=== PATIENT | female | born 1990 | race African-American/Black ===

== ENCOUNTER 2016-11-07 04:13 | Inpatient (IN) | payer MEDICAID ==
[2016-11-07 04:49] LABS: APPEARANCE,URINE SLIGHTLY-CLOUDY; BILIRUBIN,URINE NEGATIVE (NEGATIVE); GLUCOSE, URINE NEGATIVE (NEGATIVE); KETONES,URINE NEGATIVE (NEGATIVE); LEUKOCYTE ESTERASE,URINE NEGATIVE (NEGATIVE); NITRITE,URINE NEGATIVE (NEGATIVE); PROTEIN,URINE NEGATIVE (NEGATIVE)
[2016-11-07 05:16] LABS: URINE BARBITURATES SCREEN NEGATIVE; URINE METHADONE SCREEN NEGATIVE; URINE OPIATES LOW NEGATIVE; URINE PHENCYCLIDINE SCREEN NEGATIVE
[2016-11-07 06:19] LABS: CHLAM PCR NOT DETECTED (NOT DETECT)
[2016-11-07] MEDS ORDERED: PENICILLIN G POTASSIUM 5,000,000 UNIT in DEXTROSE 5%-WATER 100 ML IV ONE (06:50)
[2016-11-07] MEDS ORDERED: PENICILLIN G-K 5 MILLION UNIT VIAL ONE ×3 (06:59→11:09)
[2016-11-07] MEDS: RINGERS SOLUTION,LACTATED 1,000 ML IV PRN ×2 (07:04→07:06)
[2016-11-07 07:23] LABS: ABSOLUTE BASOPHILS # (AUTO) 0.1 10^3/uL (0.0-0.2); ABSOLUTE EOSINOPHILS # (AUTO) 0.1 10^3/uL (0.0-0.6); ABSOLUTE LYMPHOCYTES (AUTO) 2.3 10^3/uL (0.5-4.7); ABSOLUTE MONOCYTES (AUTO) 0.8 10^3/uL (0.1-1.4); ABSOLUTE NEUT (AUTO) 7.5 10^3/uL (1.7-8.2); BASOPHILS % (AUTO) 0.6 % (0-2); EOSINOPHILS % (AUTO) 0.8 % (0-6); HEMATOCRIT 29.1 % (36.0-47.0); HEMOGLOBIN 9.5 g/dL (12.0-15.5); HGB HCT DIFFERENCE -0.6; LYMPHOCYTES % (AUTO) 21.5 % (13-45); MEAN CORPUSCULAR HEMOGLOBIN 26.2 pg (27.0-33.4); MEAN CORPUSCULAR HGB CONC 32.7 g/dL (32.0-36.0); MEAN CORPUSCULAR VOLUME 80 fl (80-97); MONOCYTES % (AUTO) 7.4 % (3-13); RED BLOOD COUNT 3.63 10^6/uL (3.72-5.28); RED CELL DISTRIBUTION WIDTH 15.3 % (11.5-14.0); SEGMENTED NEUTROPHILS % (AUTO) 69.7 % (42-78); WHITE BLOOD COUNT 10.8 10^3/uL (4.0-10.5)
--- NOTE | 2016-11-07 08:01 | L&D Flow Sheet ---
LD Flowsheet Datetime Report Generated by CPN: 11/07/2016 08:00 Datetime: 11/07/2016 07:59 Maternal Assessment Level of Consciousness: Fully Conscious (Clark Amaya, SN) DTR's/Clonus: DTRs 1+; No Clonus (Clark Amaya, SN) Headache: Denies (Clark Amaya, SN) Datetime: 11/07/2016 07:20 I/O Interventions: Up to BR (Columba Centeno, RN) Datetime: 11/07/2016 07:15 Communication Communication: RN at Bedside; Report Given to @ H Vicente, RN (Columba Centeno, RN) Communication Comments: Care relinquished at this time. (Columba Centeno, RN) Datetime: 11/07/2016 07:07 Medications Antibiotics: Start Antibiotics; Penicillin IV (Units) @ 5 million units (Columba Centeno, RN) Patient Care IV/Blood Work: New IV Bag Hung (Columba Centeno, RN) Datetime: 11/07/2016 07:05 Patient Care IV/Blood Work: Labs Drawn (Columba Centeno, RN) Patient Care Comments: lab at bedside to draw blood (Columba Centeno, RN) Datetime: 11/07/2016 07:01 Vital Signs Stage of : Antepartum (Columba Centeno, RN) Uterine Activity Monitor Mode: External; Palpation (Columba Centeno, RN) Frequency (min): 5-5.5 (Columba Centeno, RN) Quality: Mild (Columba Centeno, RN) Duration (sec): 60-120 (Columba Centeno, RN) Pattern: Normal: <= 5 Contractions in 10 Minutes (Columba Centeno, RN) Resting Tone (Palpate): Relaxed (Columba Centeno, RN) Assessment A Monitor Mode: External US (Columba Centeno, RN) FHR Baseline Rate : 140 (Columba Centeno, RN) Variability: Moderate 6-25 bpm (Columba Centeno, RN) Accelerations: None (Columba Centeno, RN) Decelerations: None (Columba Centeno, RN) Communication Communication: RN at Bedside; RN Reviewed Strip (Columba Centeno, RN) Datetime: 11/07/2016 06:47 Communication Communication: Provider Orders Received; Call/Page Returned by Provider (Columba Centeno RN) Communication Comments: report given to Dr Lind re: patient cervical exams, unknown GBS status, FHR status and contraction pattern. Orders received to admit, start PCN per GBS protocol, may have epidural PRN (Columba Centeno, RN) Datetime: 11/07/2016 06:35 Communication Communication: Call/Page Placed to Provider (Columba Centeno, RN) Datetime: 11/07/2016 06:33 Vaginal Exam Dilatation (cm): 3.0 (Columba Centeno, RN) Effacement (%): 40 (Columba Centeno, RN) Station: -2 (Columba Centeno, RN) Exam by: B Centeno, RN (Columba Centeno, RN) Vaginal Bleeding: None (Columba Centeno, RN) Cervix, Consistency: Soft (Columba Centeno, RN) Cervix, Position: Posterior (Columba Centeno, RN) Datetime: 11/07/2016 06:30 Vital Signs Stage of : Antepartum (Columba Centeno, RN) Respirations: 18 (Columba Centeno, RN) Uterine Activity Monitor Mode: External; Palpation (Columba Centeno, RN) Frequency (min): 4.5-7.5 (Columba Centeno, RN) Quality: Mild (Columba Centeno, RN) Duration (sec): 80-100 (Columba Centeno, RN) Resting Tone (Palpate): Relaxed (Columba Centeno, RN) Assessment A Monitor Mode: External US (Columba Centeno, RN) FHR Baseline Rate : 140 (Columba Centeno, RN) Variability: Moderate 6-25 bpm (Columba Centeno, RN) Accelerations: None (Columba Centeno, RN) Decelerations: None (Columba Centeno, RN) Comments: with period of minimal variability (Columba Centeno, RN) Pain Pain Scale: 3 (Columba Centeno, RN) Pain Presence: Intermittent (Columba Centeno, RN) Pain Type: Contraction (Columba Centeno, RN) Pain Location: Abdomen; Back (Columba Centeno, RN) Pain Goal: 1 (Columba Centeno, RN) Pain Relief Measures: Comfort Measures (Columba Centeno, RN) Pain Coping: Talking Through Contractions; Breathing Through Contractions (Columba Centeno, RN) Comfort Measures: Breathing/Relaxation; Family Support (Columba Centeno, RN) Communication Communication: RN at Bedside; RN Reviewed Strip (Columba Centeno, RN) LaborFlag: Antepartum (QS system process) Datetime: 11/07/2016 06:28 I/O Interventions: Up to BR (Columba Centeno, RN) Datetime: 11/07/2016 06:05 NBP Sys/Aileen/Mean (mmHg): 123 (QS system process) : 83 (QS system process) : 98 (QS system process) Pulse: 79 (QS system process) LaborFlag: Antepartum (QS system process) Datetime: 11/07/2016 06:00 Vital Signs Stage of : Antepartum (Columba Centeno, RN) Uterine Activity Monitor Mode: External; Palpation (Columba Centeno, RN) Frequency (min): 3-5 (Columba Centeno, RN) Quality: Mild/Moderate (Columba Centeno, RN) Duration (sec): 60-120 (Columba Centeno, RN) Pattern: Normal: <= 5 Contractions in 10 Minutes (Columba Centeno, RN) Resting Tone (Palpate): Relaxed (Columba Centeno, RN) Assessment A Monitor Mode: External US (Columba Centeno, RN) Monitor Interventions for FHR: Ultrasound Adjusted (Columba Centeno, RN) FHR Baseline Rate : 135 (Columba Centeno, RN) Variability: Minimal - Undetectable to <=5 bpm (Columba Centeno, RN) Accelerations: 10X10 (Columba Centeno, RN) Decelerations: Early; Late (Columba Centeno, RN) Communication Communication: RN at Bedside; RN Reviewed Strip (Columba Centeno, RN) Datetime: 11/07/2016 05:53 Patient Care IV/Blood Work: IV Started; IV Bolus Started; IV Bolus Given ml @ (Annotations: 1000ml lr) (Angella Avery, RN) Datetime: 11/07/2016 05:35 NBP Sys/Aileen/Mean (mmHg): 120 (QS system process) : 89 (QS system process) : 100 (QS system process) Pulse: 98 (QS system process) Monitor Interventions for FHR: Ultrasound Adjusted (Columba Centeno, RN) LaborFlag: Antepartum (QS system process) Datetime: 11/07/2016 05:32 Communication Communication: Provider Orders Received (Columba Centeno, RN) Communication Comments: Report given to Dr Lind re: patient EGA, contractions, FHR status, lab results. Orders received to start IV and walk for one hour, then recheck cervix. (Columba Centeno, RN) Datetime: 11/07/2016 05:30 Vital Signs Stage of : Antepartum (Columba Centeno, RN) Uterine Activity Monitor Mode: External (Columba Centeno, RN) Frequency (min): 4.5-5.5 (Columba Centeno, RN) Quality: Mild (Columba Centeno, RN) Duration (sec): 80-120 (Columba Centeno, RN) Pattern: Normal: <= 5 Contractions in 10 Minutes (Columba Centeno, RN) Resting Tone (Palpate): Relaxed (Columba Centeno, RN) Assessment A Monitor Mode: External US (Columba Centeno, RN) FHR Baseline Rate : 140 (Columba Centeno, RN) Variability: Moderate 6-25 bpm (Columba Centeno, RN) Accelerations: 10X10 (Columba Centeno, RN) Decelerations: None (Columba Centeno, RN) Communication Communication: RN at Bedside; RN Reviewed Strip (Columba Centeno, RN) Datetime: 11/07/2016 05:20 Comments: vibroacoustic stimulation attempted (Columba Centeno, RN) Datetime: 11/07/2016 05:04 NBP Sys/Aileen/Mean (mmHg): 115 (QS system process) : 87 (QS system process) : 97 (QS system process) Pulse: 97 (QS system process) LaborFlag: Antepartum (QS system process) Datetime: 11/07/2016 05:00 Vital Signs Stage of : Antepartum (Columba Centeno, RN) Uterine Activity Monitor Mode: External; Palpation (Columba Centeno, RN) Frequency (min): 2.5-4 (Columba Centeno, RN) Quality: Mild (Columba Centeno, RN) Duration (sec): 50-110 (Columba Centeno, RN) Pattern: Normal: <= 5 Contractions in 10 Minutes (Columba Centeno, RN) Resting Tone (Palpate): Relaxed (Columba Centeno, RN) Assessment A Monitor Mode: External US (Columba Centeno, RN) FHR Baseline Rate : 140 (Columba Centeno, RN) Variability: Moderate 6-25 bpm (Columba Centeno, RN) Accelerations: 10X10 (Columba Centeno, RN) Decelerations: None (Columba Centeno, RN) Comments: with periods of minimal variability (Columba Centeno, RN) Communication Communication: RN at Bedside; RN Reviewed Strip (Columba Centeno, RN) Datetime: 11/07/2016 04:49 I/O Interventions: Clear Liquids Given (Columba Centeno, RN) Patient Care Comments: karolyn mist given x2 (Columba Centeno, RN) Datetime: 11/07/2016 04:41 Frequency (min): per patient 3-5 minutes (Columba Centeno, RN) Pain Pain Scale: 3 (Columba Centeno, RN) Pain Presence: Intermittent (Columba Centeno, RN) Pain Type: Contraction (Columba Centeno, RN) Pain Location: Abdomen; Back (Columba Centeno, RN) Pain Goal: 1 (Columba Centeno, RN) Pain Relief Measures: Comfort Measures (Columba Centeno, RN) Pain Coping: Talking Through Contractions; Breathing Through Contractions (Columba Centeno, RN) Vaginal Bleeding: None (Columba Centeno, RN) Maternal Assessment Level of Consciousness: Fully Conscious (Columba Centeno, RN) DTR's/Clonus: DTRs 2+; No Clonus (Columba Centeno, RN) Headache: Denies (Columba Centeno, RN) Breath Sounds, Left: Clear and Equal (Columba Centeno, RN) Breath Sounds, Right: Clear and Equal (Columba Centeno, RN) Nausea/Vomiting: Present (Annotations: nausea) (Columba Centeno, RN) RUQ Epigastric Pain: Denies (Columba Centeno, RN) Datetime: 11/07/2016 04:37 Vaginal Exam Dilatation (cm): 1.5 (Columba Centeno, RN) Effacement (%): 40 (Columba Centeno, RN) Station: -2 (Columba Centeno, RN) Exam by: Moises Centeno RN (Columba Centeno, RN) Vaginal Bleeding: None (Columba Centeno, RN) Cervix, Consistency: Soft (Columba Centeno, RN) Cervix, Position: Posterior (Columba Centeno, RN) Datetime: 11/07/2016 04:34 NBP Sys/Aileen/Mean (mmHg): 122 (QS system process) : 87 (QS system process) : 99 (QS system process) Pulse: 104 (QS system process)
[2016-11-07 08:24] LABS: ADD HIVPANEL? NO; HIV (1 AND 2) ANTIBODY NEGATIVE (NEGATIVE)
[2016-11-07] MEDS ORDERED: EPHEDRINE SULFATE INJ 50 MG/1 ML AMPULE ONE (08:24)
[2016-11-07] MEDS ORDERED: PHENYLEPHRINE HCL INJ/PF 10 MG/1 ML SDV ONE (08:24)
[2016-11-07] MEDS ORDERED: FENTANYL CITRATE INJ/PF 100 MCG/2 ML AMPUL ONE (08:24)
[2016-11-07] MEDS ORDERED: BUPIVACAINE HCL 0.25 % INJ/PF (2.5 MG/1 ML) 30 ML VIAL ONE (08:25)
[2016-11-07] MEDS ORDERED: FENTANYL/BUPIVACAINE/NS/PF 200 MCG/100 ML RTUINJ EPI ONE (08:25)
[2016-11-07] MEDS ORDERED: BUPIVACAINE HCL 0.25 % INJ/PF (2.5 MG/1 ML) 30 ML VIAL INFIL ONE (09:03)
[2016-11-07] MEDS ORDERED: BENZOIN/ALOE VERA/STORAX/TOLU TINCTURE 60 ML TP PRN (09:03)
[2016-11-07] MEDS ORDERED: FENTANYL/BUPIVACAINE/NS/PF 100 ML EPI PRN (09:03)
--- NOTE | 2016-11-07 10:01 | L&D Flow Sheet ---
LD Flowsheet Datetime Report Generated by CPN: 11/07/2016 10:00 Datetime: 11/07/2016 09:56 NBP Sys/Aileen/Mean (mmHg): 121 (QS system process) NBP Sys/Aileen/Mean (mmHg): 130 (QS system process) : 73 (QS system process) : 82 (QS system process) : 90 (QS system process) : 99 (QS system process) Pulse: 74 (QS system process) LaborFlag: Antepartum (QS system process) Datetime: 11/07/2016 09:54 NBP Sys/Aileen/Mean (mmHg): 124 (QS system process) : 73 (QS system process) : 91 (QS system process) Pulse: 65 (QS system process) LaborFlag: Antepartum (QS system process) Datetime: 11/07/2016 09:53 NBP Sys/Aileen/Mean (mmHg): 130 (QS system process) NBP Sys/Aileen/Mean (mmHg): 127 (QS system process) : 78 (QS system process) : 71 (QS system process) : 96 (QS system process) : 93 (QS system process) Pulse: 68 (QS system process) Pulse: 71 (QS system process) LaborFlag: Antepartum (QS system process) Datetime: 11/07/2016 09:52 NBP Sys/Aileen/Mean (mmHg): 128 (QS system process) : 74 (QS system process) : 96 (QS system process) Pulse: 75 (QS system process) LaborFlag: Antepartum (QS system process) Datetime: 11/07/2016 09:50 NBP Sys/Aileen/Mean (mmHg): 126 (QS system process) : 69 (QS system process) : 92 (QS system process) Pulse: 80 (QS system process) LaborFlag: Antepartum (QS system process) Datetime: 11/07/2016 09:49 NBP Sys/Aileen/Mean (mmHg): 120 (QS system process) : 65 (QS system process) : 87 (QS system process) Pulse: 74 (QS system process) LaborFlag: Antepartum (QS system process) Datetime: 11/07/2016 09:48 NBP Sys/Aileen/Mean (mmHg): 124 (QS system process) : 84 (QS system process) : 97 (QS system process) Pulse: 69 (QS system process) LaborFlag: Antepartum (QS system process) Datetime: 11/07/2016 09:47 NBP Sys/Aileen/Mean (mmHg): 124 (QS system process) : 81 (QS system process) : 99 (QS system process) Pulse: 81 (QS system process) LaborFlag: Antepartum (QS system process) Datetime: 11/07/2016 09:46 NBP Sys/Aileen/Mean (mmHg): 131 (QS system process) : 85 (QS system process) : 103 (QS system process) Pulse: 86 (QS system process) LaborFlag: Antepartum (QS system process) Datetime: 11/07/2016 09:45 Pulse: 86 (QS system process) SpO2 (%): 100 (QS system process) LaborFlag: Antepartum (QS system process) Datetime: 11/07/2016 09:43 NBP Sys/Aileen/Mean (mmHg): 130 (QS system process) : 80 (QS system process) : 101 (QS system process) Pulse: 68 (QS system process) LaborFlag: Antepartum (QS system process) Datetime: 11/07/2016 09:42 NBP Sys/Aileen/Mean (mmHg): 135 (QS system process) : 82 (QS system process) : 101 (QS system process) Pulse: 75 (QS system process) LaborFlag: Antepartum (QS system process) Datetime: 11/07/2016 09:40 Pulse: 83 (QS system process) SpO2 (%): 100 (QS system process) LaborFlag: Antepartum (QS system process) Datetime: 11/07/2016 09:39 NBP Sys/Aileen/Mean (mmHg): 132 (QS system process) : 92 (QS system process) : 108 (QS system process) Pulse: 85 (QS system process) LaborFlag: Antepartum (QS system process) Datetime: 11/07/2016 09:38 Procedure Verify: Correct Patient Identity; Correct Side and Site are Marked; Accurate Procedure Consent Form; Agreement on Procedure to be Done; Correct Patient Position (Randa Zhagn, RN) Datetime: 11/07/2016 09:36 Anesthesia Comments: DrEva Readightshead at bedside (Randa Meridas, RN) Datetime: 11/07/2016 09:35 Pulse: 76 (QS system process) SpO2 (%): 100 (QS system process) LaborFlag: Antepartum (QS system process) Datetime: 11/07/2016 09:31 Anesthesia Comments: call placed to [facility] for epidural (Randa Vicente, RN) Datetime: 11/07/2016 09:30 Pulse: 72 (QS system process) SpO2 (%): 100 (QS system process) LaborFlag: Antepartum (QS system process) Datetime: 11/07/2016 09:24 NBP Sys/Aileen/Mean (mmHg): 116 (QS system process) : 68 (QS system process) : 87 (QS system process) Pulse: 72 (QS system process) LaborFlag: Antepartum (QS system process) Datetime: 11/07/2016 09:23 Pulse: 90 (QS system process) SpO2 (%): 100 (QS system process) LaborFlag: Antepartum (QS system process) Datetime: 11/07/2016 08:30 Monitor Mode: External; Palpation (Randa Vicente, RN) Frequency (min): 2-4 (Randa Vicente, RN) Quality: Mild/Moderate (Randa Vicente, RN) Duration (sec): 60-90 (Randa Vicente, RN) Resting Tone (Palpate): Relaxed (Randa Vicente, RN) Monitor Mode: External US (Randa Vicente, RN) FHR Baseline Rate : 140 (Randa Vicente, RN) Variability: Moderate 6-25 bpm (Randa Vicente, RN) Accelerations: 10X10 (Randa Vicente, RN) Decelerations: Early; Late (Randa Vicente, RN) Datetime: 11/07/2016 08:20 Bedside Blood Glucose: 80 (QS system process) LaborFlag: Antepartum (QS system process) Datetime: 11/07/2016 08:19 Bedside Blood Glucose: 80 (Randa Vicente, RN) LaborFlag: Antepartum (QS system process) Datetime: 11/07/2016 08:17 IV/Blood Work: IV Bolus Started (Randa Vicente, RN) Datetime: 11/07/2016 08:00 Monitor Mode: External (Randa Vicente, RN) Frequency (min): 2-4 (Randa Vicente, RN) Quality: Mild/Moderate (Randa Vicente, RN) Duration (sec): 60-90 (Randa Zhang RN) Resting Tone (Palpate): Relaxed (Randa Zhang RN) Monitor Mode: External US (Randa Zhang RN) FHR Baseline Rate : 140 (Randa Zhang RN) Variability: Moderate 6-25 bpm (Randa Zhang RN) Accelerations: None (Randa Zhang RN) Decelerations: None (Randa Zhang RN)
--- NOTE | 2016-11-07 10:20 | L&D Progress Notes ---
PROGRESS NOTES Datetime Report Generated by CPN: 11/07/2016 10:20 PROGRESS NOTE Procedures: Artificial ROM Plan: Continue Present Management Vital Signs : Reviewed Comment: Pt comfortable after epidural. Arom yielded copious amniotic fluid c/w polyhydramnios. [id number]/-1 MEMBRANES Membranes: Ruptured Amniotic Fluid Color: Meconium, Particulate FETUS A FHR Category: Category I Presentation: Vertex SIGNATURE SIGNATURE: [id number] Signature: with User ID: [email or web address]
[2016-11-07] MEDS ORDERED: LIDOCAINE 1% INJ-PF (10 MG/ML) 30 ML SDV ONE (10:22)
[2016-11-07] MEDS ORDERED: MISOPROSTOL 0.2 MG TABLET ONE (10:22)
[2016-11-07] MEDS ORDERED: OXYTOCIN/NORMAL SALINE 20 UNIT/1,000 ML RTUINJ ONE (10:23)
[2016-11-07] MEDS ORDERED: PENICILLIN G POTASSIUM 2,500,000 UNIT in DEXTROSE 5%-WATER 50 ML IV SCH (10:51)
[2016-11-07] MEDS: PENICILLIN G-K 5 MILLION UNIT VIAL IV SCH ×3 (11:10→19:41)
[2016-11-07] MEDS ORDERED: ZOLPIDEM TARTRATE 5 MG TABLET PO PRN (11:45)
[2016-11-07] MEDS ORDERED: DIPH/PERTUSS(ACELL)/TETANUS VAC/PF 0.5 ML SYR (>=10YO) IM PRN (11:45)
[2016-11-07] MEDS ORDERED: OXYTOCIN/NORMAL SALINE 1,000 ML IV PRN (11:45)
[2016-11-07] MEDS ORDERED: DIBUCAINE 1% OINTMENT 28 GM TP PRN (11:45)
[2016-11-07] MEDS ORDERED: MEASLES,MUMPS&RUBELLA VACC/PF 0.5 ML VIAL SUBCUT PRN (11:45)
[2016-11-07] MEDS ORDERED: ACETAMINOPHEN WITH CODEINE #3 TABLET PO PRN ×2 (11:45)
[2016-11-07] MEDS ORDERED: BENZOCAINE/MENTHOL AEROSOL SPRAY 56 ML TOP PRN (11:45)
--- NOTE | 2016-11-07 12:01 | L&D Flow Sheet ---
LD Flowsheet Datetime Report Generated by CPN: 11/07/2016 12:00 Datetime: 11/07/2016 11:42 NBP Sys/Aileen/Mean (mmHg): 130 (QS system process) : 99 (QS system process) : 111 (QS system process) Pulse: 71 (QS system process) LaborFlag: Antepartum (QS system process) Datetime: 11/07/2016 11:28 NBP Sys/Aileen/Mean (mmHg): 140 (QS system process) : 106 (QS system process) : 119 (QS system process) Pulse: 70 (QS system process) LaborFlag: Antepartum (QS system process) Datetime: 11/07/2016 11:22 Dilatation (cm): 10.0 (Randa Vicente, RN) Effacement (%): 100 (Randa Vicente, RN) Station: 0 (Randa Vicente, RN) Exam by: Dr. Aldrich (Randa Vicente, RN) Datetime: 11/07/2016 11:12 NBP Sys/Aileen/Mean (mmHg): 131 (QS system process) : 83 (QS system process) : 102 (QS system process) Pulse: 69 (QS system process) LaborFlag: Antepartum (QS system process) Datetime: 11/07/2016 10:58 NBP Sys/Aileen/Mean (mmHg): 125 (QS system process) : 76 (QS system process) : 95 (QS system process) Pulse: 65 (QS system process) LaborFlag: Antepartum (QS system process) Datetime: 11/07/2016 10:55 Patient Position/Activity: Left Lateral; Peanut Ball (Randa Vicente, RN) Datetime: 11/07/2016 10:53 Dilatation (cm): 8.0 (Randa Vicente, RN) Effacement (%): 100 (Randa Vicente, RN) Station: -1 (Randa Vicente, RN) Exam by: Dr. Aldrich (Randa Vicente, RN) Datetime: 11/07/2016 10:43 NBP Sys/Aileen/Mean (mmHg): 142 (QS system process) : 75 (QS system process) : 102 (QS system process) Pulse: 74 (QS system process) LaborFlag: Antepartum (QS system process) Datetime: 11/07/2016 10:30 Monitor Mode: External; Palpation (Randa Vicente, RN) Frequency (min): 2-3 (Randa Vicente, RN) Quality: Moderate (Randa Vicente, RN) Duration (sec): 60-80 (Randa Vicente, RN) Resting Tone (Palpate): Relaxed (Randa Vicente, RN) Monitor Mode: External US (Randa Vicente, RN) FHR Baseline Rate : 140 (Randa Vicente, RN) Variability: Moderate 6-25 bpm (Randa Vicente, RN) Accelerations: None (Randa Vicente, RN) Decelerations: Early (Randa Vicente, RN) Datetime: 11/07/2016 10:27 NBP Sys/Aileen/Mean (mmHg): 139 (QS system process) : 86 (QS system process) : 105 (QS system process) Pulse: 76 (QS system process) LaborFlag: Antepartum (QS system process) Datetime: 11/07/2016 10:16 Patient Position/Activity: Tailors (Randa Vicente, RN) Datetime: 11/07/2016 10:15 Monitor Mode: External; Palpation (Randa Vicente, RN) Frequency (min): 2-3 (Randa Vicente, RN) Quality: Moderate (Randa Vicente, RN) Duration (sec): 60-90 (Randa Vicente, RN) Resting Tone (Palpate): Relaxed (Randa Vicente, RN) Monitor Mode: External US (Randa Vicente, RN) FHR Baseline Rate : 140 (Randa Vicente, RN) Variability: Moderate 6-25 bpm (Randa Vicente, RN) Accelerations: None (Randa Vicente, RN) Decelerations: Early (Randa Vicente, RN) Datetime: 11/07/2016 10:12 Dilatation (cm): 8.0 (Randa Vicente, RN) Effacement (%): 100 (Randa Vicente, RN) Station: -1 (Randa Vicente, RN) Exam by: H. Vicente. RN (Randa Vicente, RN) Datetime: 11/07/2016 10:11 Membranes Rupture Method: Artificial (Randa Vicente, RN) Amniotic Fluid Color: Heavy Meconium (Randa Vicente, RN) Amniotic Fluid Amount: Large (Randa Vicente, RN) Datetime: 11/07/2016 10:10 Communication Comments: Dr. Aldrich at bedside (Randacarlos Meridas, RN) Datetime: 11/07/2016 10:00 Monitor Mode: External; Palpation (Randa Zhang, RN) Frequency (min): 2-3 (Randa Vicente, RN) Quality: Moderate (Randa Vicente, RN) Duration (sec): 60-80 (Randa Vciente, RN) Resting Tone (Palpate): Relaxed (Randa Vicente, RN) Monitor Mode: External US (Randa Meridas, RN) FHR Baseline Rate : 145 (Randa Vciente, RN) Variability: Moderate 6-25 bpm (Randa Vicente, RN) Accelerations: 10X10 (Randa Vicente, RN) Decelerations: None (Randa Vicente, RN)
--- NOTE | 2016-11-07 13:40 | Delivery Summary ---
Del Sum A-C Datetime Report Generated by CPN: 11/07/2016 13:39 ADMISSION DATA Chief Complaint: Uterine Contractions Admission Impression: Term, Intrauterine Admit Provider Comments: attempt to get records from [facility] epidural when desires DELIVERY PERSONNEL Delivery Doctor:: Dodie Aldrich MD Anesthesiologist:: Lucero Rogers MD Labor and Delivery Nurse:: Randa Zhang RN Nursery Nurse:: Malu Haque RN Student Observers:: SN Jordy and M. Sharon, SN MATERNAL INFORMATION Delivery Anesthesia: Epidural Medications After Delivery: Pitocin Bolus-Please Comment Meds After Delivery Comment: Pitocin 20 units in 1000mL NSS Estimated Blood Loss (ml): 400 Maternal Complications: None Other Maternal Complications: polyhydramnios Provider Comments: Pt progressed to over intact perineum of male wiht apgars 9 and 9. Head delivered OA. Nuchal cord reduced. Shoulders and body delivered easliy. COrd clamped and cut. Placenta spont and intact. .Mom and baby doing well. LABOR SUMMARY EDC: 11/03/2016 00:00 No. Babies in Womb: 1 Attempted: No Labor Anesthesia: Epidural LABOR INFORMATION Reason for Induction: Not Applicable Onset of Labor: 11/07/2016 06:33 Oxytocin: N/A Group B Beta Strep: unknown Antibiotics # of Doses: 2 Antibiotics Time of Last Dose: 1110 Name of Antibiotic Given: PCN Steroids Given: None Reason Steroids Not Administered: Not Applicable MEMBRANES Membranes Rupture Method: Artificial Rupture of Membranes: 11/07/2016 10:11 Length of Rupture (hr): 1.30 Amniotic Fluid Color: Heavy Meconium Amniotic Fluid Amount: Large STAGES OF LABOR Stage 3 hr: 0 Stage 3 min: 4 Total Time in Labor hr: 5 Total Time in Labor min: 0 VAGINAL DELIVERY Episiotomy: None Laceration Type: None Laceration Repair: Not Applicable Sponge Count Correct: N/A CSECTION DELIVERY Primary Indication: N/A Secondary Indication: N/A CSection Urgency: N/A CSection Incidence: N/A Labor: N/A Elective: N/A CSection Incision: N/A BABY A INFORMATION Infant Delivery Date/Time: 11/07/2016 11:29 Method of Delivery: Vaginal Born in Route : No : N/A Forceps: N/A Vacuum Extraction: N/A Shoulder Dystocia : No PRESENTATION/POSITION BABY A Presentation: Cephalic Cephalic Presentation: Vertex Breech Presentation: N/A PLACENTA INFORMATION BABY A Placenta Delivery Time : 11/07/2016 11:33 Placenta Method of Delivery: Spontaneous Placenta Status: Delivered SCORES BABY A Heart Rate 1 min: >100 bpm Resp Effort 1 min: Good Cry Reflex Irritability 1 min: Cough or Sneeze or Pulls Away Muscle Tone 1 min: Active Motion Color 1 min: Body [place], Extremities Blue Resuscitation Effort 1 min: Tactile Stimulation SCORE 1 MIN: 9 Heart Rate 5 min: >100 bpm Resp Effort 5 min: Good Cry Reflex Irritability 5 min: Cough or Sneeze or Pulls Away Muscle Tone 5 min: Active Motion Color 5 min: Body [place], Extremities Blue Resuscitation Effort 5 min: Tactile Stimulation SCORE 5 MIN: 9 INFANT INFORMATION BABY A Gestational Age at Delivery: 40.4 Gestational Status: Full Term- 39- 40.6 Weeks Outcome : Liveborn Infant Condition : Stable Sex: Male IDENTIFICATION BABY A Verification Date/Time: 11/07/2016 11:36 ID Band Number: [id number] Mother's Name Verified: Yes RN Verifying Infant: A Justo RN/ B Baidy RN WEIGHT/LENGTH BABY A Infant Birthweight (gm): 3675 Infant Weight (lb): 8 Infant Weight (oz): 2 Infant Length (in): 20.50 Infant Length (cm): 52.07 CORD INFORMATION BABY A No. Cord Vessels: 3 Nuchal Cord : Around Neck x1, Loose Cord Blood Taken: Yes-For Storage (Mom's Blood type +) Suction: Mouth; Nose ASSESSMENT BABY A Infant Complications: Meconium Physical Findings at Delivery: Within Normal Limits Infant Respirations: Appears Normal Skin to Skin: Yes Timber Grader/ALS Called : No Care By: Malu Haque RN and SN Tomas Transferred To: Remains with Mother BABY B INFORMATION : N/A SIGNATURES Signature: with User ID: [email or web address]
--- NOTE | 2016-11-07 14:01 | Admission Physical ---
Datetime Report Generated by CPN: 11/07/2016 14:00 CURRENT ADMISSION Chief Complaint: Uterine Contractions Admit Plan: Initiate Labor Protocol ALLERGIES Medication Allergies: No Medication Allergies: No Known Allergies (11/07/2016) Latex: No Latex Allergies Food Allergies: none Environmental Allergies: none OBSTETRICAL HISTORY EDC: 11/03/2016 00:00 : 3 Para: 2 Term: 2 : 0 SAB: 0 IAB: 0 Ectopic: 0 Livin Cesareans: 0 VBACs: 0 Multiple Births: 0 Gestational Diabetes: No Rh Sensitization: No Incompetent Cervix: No NIGEL: No Infertility: No ART Treatment: No Uterine Anomaly: No IUGR: No Hx Previous C/S: No Macrosomia: No Hx Loss/Stillborn: No PIH: No Hx : No Placenta Previa/Abruption: No Depression/PP Depression: No PTL/PROM: No Post Hemorrhage: No Current Procedures: Ultrasound; NST Obstetrical History Comments: G1: 2009 G2: 2012 G3: Current SEE RECORDS Alcohol: No Marijuana : No Cocaine: No Other Illicit Drugs: No Cigarettes: Current Everyday Smoker. [id number] Cigarette Frequency: 5 - 10 per day Advised to Stop: Yes Cigarette Comments: half ppd MEDICAL HISTORY Diabetes: No Blood Transfusion: No Pulmonary Disease (Asthma, TB): No Breast Disease: No Hypertension: No Data Integrity Analyst Surgery: No Heart Disease: No Hosp/Surgery: Yes Autoimmune Disorder: No Anesthetic Complications: No Kidney Disease: No Abnormal Pap Smear: No Neuro/Epilepsy: No Psychiatric Disorders: No Other Medical Diseases: No Hepatitis/Liver Disease: No Significant Family History: No Varicosities/Phlebitis: No Trauma/Violence : No Thyroid Dysfunction: No Medical History Comments: childbirth INFECTIOUS HISTORY Gonorrhea: No Genital Herpes: No Chlamydia: No Tuberculosis: No Syphilis: No Hepatitis: No HIV/AIDS Exposure: No Rash or Viral Illness: No HPV: No PHYSICAL EXAM General: Normal HEENT: Normal Neurologic: Normal Thyroid: Normal Heart: Normal Lungs: Normal Breast: Normal Back: Normal Abdomen: Normal Genitourinary Exam: Normal Extremities: Normal DTRs: Normal Pelvic Type: Adequate Physical Exam Comments: efw 9 pounds by leopolds pt smokes Vital Signs: Reviewed MEMBRANES Membranes: Ruptured Amniotic Fluid Color: Meconium, Particulate FETUS A EGA: 40.4 Monitoring: External US FHR Category: Category I Presentation: Vertex Admit Comment: attempt to get records from [facility] epidural when desires PLANS FOR LABOR AND DELIVERY Labor and Delivery: None Pain Management: Epidural Feeding Preference: Breast Benefit of Breast Feed Discussed: Yes Circumcision: No INFORMED CONSENT Signature: with User ID: [email or web address]
[2016-11-07] MEDS: IBUPROFEN 800 MG TABLET PO SCH ×2 (14:20→21:11)
[2016-11-07] MEDS: FERROUS SULFATE 325 MG TABLET PO SCH (17:44)
[2016-11-07] MEDS: DOCUSATE SODIUM 100 MG CAPSULE PO SCH (17:44)
--- NOTE | 2016-11-07 19:01 | L&D Flow Sheet ---
LD Flowsheet Datetime Report Generated by CPN: 11/07/2016 19:00 Datetime: 11/07/2016 13:27 NBP Sys/Aileen/Mean (mmHg): 135 (QS system process) : 77 (QS system process) : 98 (QS system process) Pulse: 82 (QS system process) Datetime: 11/07/2016 13:00 Stage of : Recovery (Randa Vicente, RN) Pain Scale: 0 (Randa Vicente, RN) Pain Presence: None/Denies (Randa Vicente, RN) Pain Type: N/A (Randa Vicente, RN) Datetime: 11/07/2016 12:57 NBP Sys/Aileen/Mean (mmHg): 127 (QS system process) : 87 (QS system process) : 102 (QS system process) Pulse: 83 (QS system process) Datetime: 11/07/2016 12:45 Stage of : Recovery (Rnada Vicente, RN) Pain Scale: 0 (Randa Vicente, RN) Pain Presence: None/Denies (Randa Vicente, RN) Pain Type: N/A (Randa Vicente, RN) Datetime: 11/07/2016 12:42 NBP Sys/Aileen/Mean (mmHg): 135 (QS system process) : 89 (QS system process) : 107 (QS system process) Pulse: 81 (QS system process) Datetime: 11/07/2016 12:30 Stage of : Recovery (Randa Vicente, RN) Pain Scale: 0 (Randa Vicente, RN) Pain Presence: None/Denies (Randa Vicente, RN) Pain Type: N/A (Randa Vicente, RN) Datetime: 11/07/2016 12:27 NBP Sys/Aileen/Mean (mmHg): 136 (QS system process) : 74 (QS system process) : 99 (QS system process) Pulse: 74 (QS system process) Datetime: 11/07/2016 12:15 Stage of : Recovery (Randa Vicente, RN) Pain Scale: 0 (Randa Vicente, RN) Pain Presence: None/Denies (Randa Vicente, RN) Pain Type: N/A (Randa Vicente, RN) Datetime: 11/07/2016 12:12 NBP Sys/Aileen/Mean (mmHg): 136 (QS system process) : 74 (QS system process) : 98 (QS system process) Pulse: 73 (QS system process) Datetime: 11/07/2016 12:00 Stage of : Recovery (Randa Vicente, RN) Pain Scale: 0 (Randa Vicente, RN) Pain Presence: None/Denies (Randa Vicente, RN) Pain Type: N/A (Randa Vicente, RN) Datetime: 11/07/2016 11:50 Stage of : Recovery (Randa Vicente, RN) Pain Scale: 0 (Randa Vicente, RN) Pain Presence: None/Denies (Randa Vicente, RN) Pain Type: N/A (Randa Vicente, RN) Datetime: 11/07/2016 11:42 NBP Sys/Aileen/Mean (mmHg): 130 (QS system process) : 99 (QS system process) : 111 (QS system process) Pulse: 71 (QS system process) Datetime: 11/07/2016 11:35 Stage of : Recovery (Randa Zhang RN) Pain Scale: 0 (Randa Zhang RN) Pain Presence: None/Denies (Randa Zhang RN) Pain Type: N/A (Randa Zhang RN) Datetime: 11/07/2016 11:28 NBP Sys/Aileen/Mean (mmHg): 140 (QS system process) : 106 (QS system process) : 119 (QS system process) Pulse: 70 (QS system process) LaborFlag: Antepartum (QS system process) Datetime: 11/07/2016 11:22 Dilatation (cm): 10.0 (Randa Zhang RN) Effacement (%): 100 (Randa Zhang RN) Station: 0 (Randa Zhang RN) Exam by: Dr. Aldrich (Randa Zhang RN) Communication Comments: RN at bedside to remain until delivery (Randa Vicente, RN) Datetime: 11/07/2016 11:21 Communication Comments: Dr. Aldrich at bedside (Randa Vicente, RN) Datetime: 11/07/2016 11:15 Monitor Mode: External; Palpation (Randa Vicente, RN) Frequency (min): 2-4 (Randa Vicente, RN) Quality: Moderate (Randa Vicente, RN) Duration (sec): 60-80 (Randa Vicente, RN) Resting Tone (Palpate): Relaxed (Randa Vicente, RN) Monitor Mode: External US (Randa Vicente, RN) FHR Baseline Rate : 140 (Randa Vicente, RN) Variability: Moderate 6-25 bpm (Randa Vicente, RN) Accelerations: None (Randa Vicente, RN) Decelerations: Variable (Randa Vicente, RN) Datetime: 11/07/2016 11:12 NBP Sys/Aileen/Mean (mmHg): 131 (QS system process) : 83 (QS system process) : 102 (QS system process) Pulse: 69 (QS system process) LaborFlag: Antepartum (QS system process) Datetime: 11/07/2016 11:00 Monitor Mode: External; Palpation (Randa Vicente, RN) Frequency (min): 2-3 (Randa Vicente, RN) Quality: Moderate (Randa Vicente, RN) Duration (sec): 60-80 (Randa Vicente, RN) Resting Tone (Palpate): Relaxed (Randa Vicente, RN) Monitor Mode: External US (Randa Vicente, RN) FHR Baseline Rate : 140 (Randa Vicente, RN) Variability: Moderate 6-25 bpm (Randa Vicente, RN) Accelerations: None (Randa Vicente, RN) Decelerations: Variable (Randa Vicente, RN) Datetime: 11/07/2016 10:58 NBP Sys/Aileen/Mean (mmHg): 125 (QS system process) : 76 (QS system process) : 95 (QS system process) Pulse: 65 (QS system process) LaborFlag: Antepartum (QS system process) Datetime: 11/07/2016 10:55 Patient Position/Activity: Left Lateral; Peanut Ball (Randa Vicente, RN) Datetime: 11/07/2016 10:53 Dilatation (cm): 8.0 (Randa Vicente, RN) Effacement (%): 100 (Randa Vicente, RN) Station: -1 (Randa Vicente, RN) Exam by: Dr. Aldrich (Randa Vicente, RN) Datetime: 11/07/2016 10:45 Monitor Mode: External; Palpation (Randa Vicente, RN) Frequency (min): 2-3 (Randa Vicente, RN) Quality: Moderate (Randa Vicente, RN) Duration (sec): 60-80 (Randa Vicente, RN) Resting Tone (Palpate): Relaxed (Randa Vicente, RN) Monitor Mode: External US (Randa Vicente, RN) FHR Baseline Rate : 140 (Randa Vicente, RN) Variability: Moderate 6-25 bpm (Randa Vicente, RN) Accelerations: None (Randa Vicente, RN) Decelerations: Variable (Randa Vicente, RN) Datetime: 11/07/2016 10:43 NBP Sys/Aileen/Mean (mmHg): 142 (QS system process) : 75 (QS system process) : 102 (QS system process) Pulse: 74 (QS system process) LaborFlag: Antepartum (QS system process) Datetime: 11/07/2016 10:30 Monitor Mode: External; Palpation (Randa Vicente, RN) Frequency (min): 2-3 (Randa Vicente, RN) Quality: Moderate (Randa Vicente, RN) Duration (sec): 60-80 (Randa Vicente, RN) Resting Tone (Palpate): Relaxed (Randa Vicente, RN) Monitor Mode: External US (Randa Vicente, RN) FHR Baseline Rate : 140 (Randa Vicente, RN) Variability: Moderate 6-25 bpm (Randa Vicente, RN) Accelerations: None (Randa Vicente, RN) Decelerations: Early (Randa Vicente, RN) Datetime: 11/07/2016 10:27 NBP Sys/Aileen/Mean (mmHg): 139 (QS system process) : 86 (QS system process) : 105 (QS system process) Pulse: 76 (QS system process) LaborFlag: Antepartum (QS system process) Datetime: 11/07/2016 10:16 Patient Position/Activity: Tailors (Randa Vicente, RN) Datetime: 11/07/2016 10:15 Monitor Mode: External; Palpation (Randa Vicente, RN) Frequency (min): 2-3 (Randa Vicente, RN) Quality: Moderate (Randa Vicente, RN) Duration (sec): 60-90 (Randa Vicente, RN) Resting Tone (Palpate): Relaxed (Randa Vicente, RN) Monitor Mode: External US (Randa Vicente, RN) FHR Baseline Rate : 140 (Randa Vicente, RN) Variability: Moderate 6-25 bpm (Randa Vicente, RN) Accelerations: None (Randa Vicente, RN) Decelerations: Early (Randa Vicente, RN) Datetime: 11/07/2016 10:12 Dilatation (cm): 8.0 (Randa Vicente, RN) Effacement (%): 100 (Randa Vicente, RN) Station: -1 (Randa Vicente, RN) Exam by: Melissa Willoughby RN (Randa Vicente, RN) Datetime: 11/07/2016 10:11 Membranes Rupture Method: Artificial (Randa Vicente, RN) Amniotic Fluid Color: Heavy Meconium (Randa Vicente, RN) Amniotic Fluid Amount: Large (Randa Vicente, RN) Datetime: 11/07/2016 10:10 Communication Comments: Dr. Aldrich at bedside (Randa Vicente, RN) Datetime: 11/07/2016 10:00 Monitor Mode: External; Palpation (Randa Vicente, RN) Frequency (min): 2-3 (Randa Vicente, RN) Quality: Moderate (Randa Vicente, RN) Duration (sec): 60-80 (Randa Vicente, RN) Resting Tone (Palpate): Relaxed (Randa Vicente, RN) Monitor Mode: External US (Randa Vicente, RN) FHR Baseline Rate : 145 (Randa Vicente, RN) Variability: Moderate 6-25 bpm (Randa Vicente, RN) Accelerations: 10X10 (Randa Vicente, RN) Decelerations: None (Randa Vicente, RN) Datetime: 11/07/2016 09:56 NBP Sys/Aileen/Mean (mmHg): 121 (QS system process) NBP Sys/Aileen/Mean (mmHg): 130 (QS system process) : 73 (QS system process) : 82 (QS system process) : 90 (QS system process) : 99 (QS system process) Pulse: 74 (QS system process) LaborFlag: Antepartum (QS system process) Datetime: 11/07/2016 09:54 NBP Sys/Aileen/Mean (mmHg): 124 (QS system process) : 73 (QS system process) : 91 (QS system process) Pulse: 65 (QS system process) LaborFlag: Antepartum (QS system process) Datetime: 11/07/2016 09:53 NBP Sys/Aileen/Mean (mmHg): 130 (QS system process) NBP Sys/Aileen/Mean (mmHg): 127 (QS system process) : 78 (QS system process) : 71 (QS system process) : 96 (QS system process) : 93 (QS system process) Pulse: 68 (QS system process) Pulse: 71 (QS system process) LaborFlag: Antepartum (QS system process) Datetime: 11/07/2016 09:52 NBP Sys/Aileen/Mean (mmHg): 128 (QS system process) : 74 (QS system process) : 96 (QS system process) Pulse: 75 (QS system process) LaborFlag: Antepartum (QS system process) Datetime: 11/07/2016 09:50 NBP Sys/Aileen/Mean (mmHg): 126 (QS system process) : 69 (QS system process) : 92 (QS system process) Pulse: 80 (QS system process) LaborFlag: Antepartum (QS system process) Datetime: 11/07/2016 09:49 NBP Sys/Aileen/Mean (mmHg): 120 (QS system process) : 65 (QS system process) : 87 (QS system process) Pulse: 74 (QS system process) LaborFlag: Antepartum (QS system process) Datetime: 11/07/2016 09:48 NBP Sys/Aileen/Mean (mmHg): 124 (QS system process) : 84 (QS system process) : 97 (QS system process) Pulse: 69 (QS system process) LaborFlag: Antepartum (QS system process) Datetime: 11/07/2016 09:47 NBP Sys/Aileen/Mean (mmHg): 124 (QS system process) : 81 (QS system process) : 99 (QS system process) Pulse: 81 (QS system process) LaborFlag: Antepartum (QS system process) Datetime: 11/07/2016 09:46 NBP Sys/Aileen/Mean (mmHg): 131 (QS system process) : 85 (QS system process) : 103 (QS system process) Pulse: 86 (QS system process) LaborFlag: Antepartum (QS system process) Datetime: 11/07/2016 09:45 Pulse: 86 (QS system process) SpO2 (%): 100 (QS system process) Monitor Mode: External; Palpation (Randacarlos Zhang, RN) Frequency (min): 1-2 (Randa Vicente, RN) Quality: Moderate (Randa Vicente, RN) Duration (sec): 60-80 (Randa Vicente, RN) Resting Tone (Palpate): Relaxed (Randacarlos Zhang, RN) Monitor Mode: External US (Randa Zhang, RN) FHR Baseline Rate : 145 (Randa Vicente, RN) Variability: Moderate 6-25 bpm (Randa Vicente, RN) Accelerations: None (Randa Vicente, RN) Decelerations: None (Randa Vicente, RN) Comments: RN at bedside continuously monitoring and auscultating fhts (Randa Zhang, RN) Epidural Procedure: Cath Placed; Test Dose (Randa Vicente, RN) LaborFlag: Antepartum (QS system process) Datetime: 11/07/2016 09:43 NBP Sys/Aileen/Mean (mmHg): 130 (QS system process) : 80 (QS system process) : 101 (QS system process) Pulse: 68 (QS system process) LaborFlag: Antepartum (QS system process) Datetime: 11/07/2016 09:42 NBP Sys/Aileen/Mean (mmHg): 135 (QS system process) : 82 (QS system process) : 101 (QS system process) Pulse: 75 (QS system process) LaborFlag: Antepartum (QS system process) Datetime: 11/07/2016 09:40 Pulse: 83 (QS system process) SpO2 (%): 100 (QS system process) LaborFlag: Antepartum (QS system process) Datetime: 11/07/2016 09:39 NBP Sys/Aileen/Mean (mmHg): 132 (QS system process) : 92 (QS system process) : 108 (QS system process) Pulse: 85 (QS system process) LaborFlag: Antepartum (QS system process) Datetime: 11/07/2016 09:38 Procedure Verify: Correct Patient Identity; Correct Side and Site are Marked; Accurate Procedure Consent Form; Agreement on Procedure to be Done; Correct Patient Position (Randa Vicente, RN) Datetime: 11/07/2016 09:36 Anesthesia Comments: DrEva Readightshead at bedside (Randa Vicente, RN) Datetime: 11/07/2016 09:35 Pulse: 76 (QS system process) SpO2 (%): 100 (QS system process) LaborFlag: Antepartum (QS system process) Datetime: 11/07/2016 09:31 Anesthesia Comments: call placed to Dr. Rogers for epidural (Randa Vicente, RN) Datetime: 11/07/2016 09:30 Pulse: 72 (QS system process) SpO2 (%): 100 (QS system process) Monitor Mode: External; Palpation (Randa Vicente, RN) Frequency (min): 1-3 (Randa Vicente, RN) Quality: Moderate (Randa Vicente, RN) Duration (sec): 60-80 (Randa Vicente, RN) Resting Tone (Palpate): Relaxed (Randa Vicente, RN) Contraction Comments: couplets noted (Randa Vicente, RN) Monitor Mode: External US (Randa Vicente, RN) FHR Baseline Rate : 140 (Randa Vicente, RN) Variability: Moderate 6-25 bpm (Randa Vicente, RN) Accelerations: None (Randa Vicente, RN) Decelerations: None (Randa Vicente, RN) LaborFlag: Antepartum (QS system process) Datetime: 11/07/2016 09:25 Epidural Positioning: Sitting (Randa Vicente, RN) Datetime: 11/07/2016 09:24 NBP Sys/Aileen/Mean (mmHg): 116 (QS system process) : 68 (QS system process) : 87 (QS system process) Pulse: 72 (QS system process) LaborFlag: Antepartum (QS system process) Datetime: 11/07/2016 09:23 Pulse: 90 (QS system process) SpO2 (%): 100 (QS system process) LaborFlag: Antepartum (QS system process) Datetime: 11/07/2016 09:15 Monitor Mode: External; Palpation (Randa Vicente, RN) Frequency (min): 2-3 (Randa Vicente, RN) Quality: Moderate (Randa Vicente, RN) Duration (sec): 60-80 (Randa Vicente, RN) Resting Tone (Palpate): Relaxed (Randa Vicente, RN) Contraction Comments: RN at bedside attempting to locate fdhts (Randa Vicente, RN) Monitor Mode: External US (Randa Vicente, RN) FHR Baseline Rate : 135 (Randa Vicente, RN) Variability: Moderate 6-25 bpm (Randa Vicente, RN) Accelerations: None (Randa Vicente, RN) Decelerations: None (Randa Vicente, RN) Datetime: 11/07/2016 09:00 Monitor Mode: External (Clark Amaya, SN) Frequency (min): 1-3 (Clark Amaya, SN) Quality: Mild/Moderate (Clark Amaya, SN) Duration (sec): 60-90 (Clark Amaya, SN) Pattern: Normal: <= 5 Contractions in 10 Minutes (Clark Amaya, SN) Resting Tone (Palpate): Relaxed (Clark Amaya, SN) Monitor Mode: External US (Clark Amaya, SN) FHR Baseline Rate : 140 (Clark Amaya, SN) Accelerations: 10X10 (Clark Amaya, SN) Decelerations: None (Clark Amaya, SN) Datetime: 11/07/2016 08:49 Comments: Pt up to restroom (Clark Amaya, SN) Datetime: 11/07/2016 08:30 Monitor Mode: External; Palpation (Randa Vicente, RN) Frequency (min): 2-4 (Randa Vicente, RN) Quality: Mild/Moderate (Randa Vicente, RN) Duration (sec): 60-90 (Randa Vicente, RN) Resting Tone (Palpate): Relaxed (Randa Vicente, RN) Monitor Mode: External US (Randa Vicente, RN) FHR Baseline Rate : 140 (Randa Vicente, RN) Variability: Moderate 6-25 bpm (Randa Vicente, RN) Accelerations: 10X10 (Randa Vicente, RN) Decelerations: Early; Late (Randa Vicente, RN) Datetime: 11/07/2016 08:20 Bedside Blood Glucose: 80 (QS system process) LaborFlag: Antepartum (QS system process) Datetime: 11/07/2016 08:19 Bedside Blood Glucose: 80 (Randa Vicente, RN) LaborFlag: Antepartum (QS system process) Datetime: 11/07/2016 08:17 IV/Blood Work: IV Bolus Started (Randa Vicente, RN) Datetime: 11/07/2016 08:00 Monitor Mode: External (Randa Vicente, RN) Frequency (min): 2-4 (Randa Vicente, RN) Quality: Mild/Moderate (Randa Vicente, RN) Duration (sec): 60-90 (Randa Vicente, RN) Resting Tone (Palpate): Relaxed (Randa Vicente, RN) Monitor Mode: External US (Randa Vicente, RN) FHR Baseline Rate : 140 (Randa Vicente, RN) Variability: Moderate 6-25 bpm (Randa Vicente, RN) Accelerations: None (Randa Vicente, RN) Decelerations: None (Randa Vicente, RN) Datetime: 11/07/2016 07:59 Level of Consciousness: Fully Conscious (Clark Amaya, SN) DTR's/Clonus: DTRs 1+; No Clonus (Clark Amaya, SN) Headache: Denies (Clark Amaya, SN) Breath Sounds, Left: Clear and Equal (Clark Amaya, SN) Breath Sounds, Right: Clear and Equal (Clark Amaya, SN) Nausea/Vomiting: Denies (Clark Amaya, SN) RUQ Epigastric Pain: Denies (Clark Amaya, SN) Datetime: 11/07/2016 07:30 Monitor Mode: External; Palpation (Randa Zhang RN) Frequency (min): 2-4 (Randa Zhang RN) Quality: Mild/Moderate (Randacarlos Zhang, RN) Duration (sec): 60-90 (Randa Zhang, RN) Resting Tone (Palpate): Relaxed (Randa Zhang RN) Monitor Mode: External US (Randa Zhang RN) FHR Baseline Rate : 140 (Randacarlos Zhang, RN) Variability: Moderate 6-25 bpm (Randa Vicente, RN) Accelerations: None (Randa Vicente, RN) Decelerations: Early (Randa Zhang, RN) Communication Comments: tracing maternal hts. RN at bedside attempting to locate fhts (Randa Zhang RN) Datetime: 11/07/2016 07:20 I/O Interventions: Up to BR (Columba Centeno, RN) Datetime: 11/07/2016 07:15 Communication: RN at Bedside; Report Given to @ H Vicente, RN (Columba Centeno, RN) Communication Comments: Care relinquished at this time. (Columba Centeno, RN) Datetime: 11/07/2016 07:07 Antibiotics: Start Antibiotics; Penicillin IV (Units) @ 5 million units (Columba Centeno, RN) IV/Blood Work: New IV Bag Hung (Columba Centeno, RN) Datetime: 11/07/2016 07:05 IV/Blood Work: Labs Drawn (Columba Centeno RN) Patient Care Comments: lab at bedside to draw blood (Columba Centeno RN) Datetime: 11/07/2016 07:01 Stage of : Antepartum (Columba Centeno RN) Monitor Mode: External; Palpation (Columba Centeno RN) Frequency (min): 5-5.5 (Columba Centeno RN) Quality: Mild (Columba Centeno RN) Duration (sec): 60-120 (Columba Centeno RN) Pattern: Normal: <= 5 Contractions in 10 Minutes (Columba Centeno RN) Resting Tone (Palpate): Relaxed (Columba Centeno RN) Monitor Mode: External US (Columba Centeno RN) FHR Baseline Rate : 140 (Columba Centeno RN) Variability: Moderate 6-25 bpm (Columba Centeno RN) Accelerations: None (Columba Centeno RN) Decelerations: None (Columba Centeno RN) Communication: RN at Bedside; RN Reviewed Strip (Columba Centeno RN)
[2016-11-08] MEDS: IBUPROFEN 800 MG TABLET PO SCH ×3 (05:40→21:03)
--- NOTE | 2016-11-08 06:01 | L&D General Admission ---
General Admit Datetime Report Generated by CPN: 11/08/2016 06:00 INFORMATION Patient Age: 26 (11/07/2016 04:14:QS system process) EDC: 11/03/2016 00:00 (11/07/2016 04:17:Angella Avery RN) : 3 (11/07/2016 04:17:Columba Centeno RN) Para: 2 (11/07/2016 04:17:Columba Centeno RN) Term: 2 (11/07/2016 04:17:Columba Centeno RN) : 0 (11/07/2016 04:17:Columba Centeno RN) Spontaneous Abortions: 0 (11/07/2016 04:17:Columba Centeno RN) Induced Abortions: 0 (11/07/2016 04:17:Columba Centeno RN) Livin (11/07/2016 04:17:Columba Centeno RN) Cesareans: 0 (11/07/2016 04:17:Columba Centeno RN) VBACs: 0 (11/07/2016 04:17:Columba Centeno RN) Ectopic: 0 (11/07/2016 04:17:Columba Centeno RN) Multiple Births: 0 (11/07/2016 04:17:Columba Centeno RN) Baby, Number in Womb: 1 (11/07/2016 04:17:Columba Centeno RN) CARE Primary Clinical Research Analyst: [facility] (11/07/2016 04:17:Columba Centeno RN) Clinical Research Analyst Other: [facility], [facility] (11/07/2016 04:17:Columba Centeno RN) Height (in): 68 (11/07/2016 14:00:QS system process) ALLERGIES Medication Allergy: No (11/07/2016 04:17:Columba Centeno RN) Medication Allergies: No Known Allergies (11/07/2016) (11/07/2016 04:30:QS system process) Latex Allergy: No Latex Allergies (11/07/2016 04:17:Columba Centeno RN) Food Allergies: none (11/07/2016 04:17:Columba Centeno, RN) Environmental Allergies: none (11/07/2016 04:17:Columba Centeno, RN) COMMUNICATION Primary Language: Japanese (11/07/2016 04:17:Columba Centeno RN) Medical Tx Preferred Language: Japanese (11/07/2016 04:17:Columba Centeno, RN) DEMOGRAPHICS Address: [address] [place] [id number] (11/07/2016 04:14:QS system process) Zipcode: [address] (11/07/2016 04:14:QS system process) Home (11/07/2016 04:14:QS system process) SSN: [id number] (11/07/2016 04:14:QS system process) Next of Kin Name: KIM PINEDA (11/07/2016 04:14:QS system process) Next of Kin (11/07/2016 04:14:QS system process) Next of Kin Relationship: MO (11/07/2016 04:14:QS system process) Date of : 1990 (11/07/2016 04:14:QS system process) Marital Status: Single (11/07/2016 04:14:QS system process) Sex: Female (11/07/2016 04:14:QS system process) Race: (11/07/2016 04:14:QS system process) Ethnicity: Non- or (11/07/2016 04:14:QS system process) Orthodox: None (11/07/2016 04:14:QS system process) DRUG AND ALCOHOL USE Alcohol: No (11/07/2016 04:17:Columba Centeno RN) Cigarettes: Current Everyday Smoker. [id number] (11/07/2016 04:17:Columba Centeno RN) Average Cigarettes Smoked: 5 - 10 per day (11/07/2016 04:17:Columba Centeno RN) Advised to Stop Smoking: Yes (11/07/2016 04:17:Columba Centeno RN) Cigarette Comments: half ppd (11/07/2016 04:17:Columba Centeno RN) Marijuana: No (11/07/2016 04:17:Columba Centeno RN) Cocaine: No (11/07/2016 04:17:Columba Centeno RN) Other Illicit Drugs: No (11/07/2016 04:17:Columba Centeno RN) VACCINE HISTORY Influenza Vaccine: Yes (11/07/2016 04:17:Columba Centeno RN) Pneumococcal Vaccine: No (11/07/2016 04:17:Columba Centeno RN) Tetanus Vaccine: Yes (11/07/2016 04:17:Columba Centeno RN) Tdap Vaccine: Yes (11/07/2016 04:17:Columba Centeno RN) Hepatitis B Vaccine: Yes (11/07/2016 04:17:Columba Centeno RN) Feeding Preference: Breast (11/07/2016 04:17:Columba Centeno RN) Benefit of Breast Feed Discussed: Yes (11/07/2016 04:17:Columba Centeno RN) Circumcision: No (11/07/2016 04:17:Columba Centeno RN) Tubal Ligation: No (11/07/2016 04:17:Columba Centeno RN) Tubal Authorization Signed: N/A (11/07/2016 04:17:Columba Centeno RN) Consent: N/A (11/07/2016 04:17:Columba Centeno RN) Consent Signed: N/A (11/07/2016 04:17:Columba Centeno RN) Pain Management Plans: Epidural (11/07/2016 04:17:Columba Centeno RN) Plans for Labor and Delivery: None (11/07/2016 04:17:Columba Centeno RN) Cultural/Spritual Practice: No (11/07/2016 04:17:Columba Centeno RN) Spir/Cult Dietary Needs: No (11/07/2016 04:17:Columba Centeno RN) LIVING SITUATION/DISCHARGE PLAN Living Arrangements: House (11/07/2016 04:17:Columba Centeno RN) Adequate Access to:: Electric; Heat; Refrigeration; Plumbing/Running water; Phone; Transportation (11/07/2016 04:17:Columba Centeno RN) WIC Program: Yes (11/07/2016 04:17:Columba Centeno RN) Currently Using Commun Resources: Yes (11/07/2016 04:17:Columba Centeno RN) Specify Current Resource Used: Medicaid, EBT (11/07/2016 04:17:Columba Centeno RN) Outside Agency/Bindery Operator: No (11/07/2016 04:17:Columba Centeno RN) Car Seat for Discharge: Yes (11/07/2016 04:17:Columba Centeno RN) Adoption Requested: No (11/07/2016 04:17:Columba Centeno RN) Pt Contact w/infant Post : N/A (11/07/2016 04:17:Columba Centeno RN) LABS Hemoglobin: 9.5 L (11/07/2016 07:12:QS system process) Hematocrit: 29.1 L (11/07/2016 07:12:QS system process) MCV: 80 (11/07/2016 07:12:QS system process) Group Beta Strep: unknown (11/07/2016 04:17:Randa Zhang RN) Gonorrhea: Negative (11/07/2016 04:17:Columba Centeno RN) Chlamydia: Negative (11/07/2016 04:17:Columba Centeno RN) HIV Results: NEGATIVE (11/07/2016 07:12:QS system process) Rubella: POSITIVE NEGATIVE IF LESS THAN OR EQUAL TO 9.99 IU/mL POSITIVE IF GREATER THAN OR EQUAL TO 10.0 IU/mL (11/07/2016 07:12:QS system process) Rubella Titer: 22.50 (11/07/2016 07:12:QS system process) OB/PREVIOUS HISTORY Previous Procedures: Ultrasound; NST (11/07/2016 04:17:Columba Centeno RN) Current Procedures: Ultrasound; NST (11/07/2016 04:17:Columba Centeno RN) History of Previous : No (11/07/2016 04:17:Columba Centeno RN) History of Gestational Diabetes: No (11/07/2016 04:17:Columba Centeno RN) History of PIH: No (11/07/2016 04:17:Columba Centeno RN) History of Incompetent Cervix: No (11/07/2016 04:17:Columba Centeno RN) History of Placenta Previa/Abrup: No (11/07/2016 04:17:Columba Centeno RN) History of Macrosomia: No (11/07/2016 04:17:Columba Centeno RN) History of IUGR: No (11/07/2016 04:17:Columba Centeno RN) History of Hemorrhage: No (11/07/2016 04:17:Columba Centeno RN) History of Loss/Stillborn: No (11/07/2016 04:17:Columba Centeno RN) History of : No (11/07/2016 04:17:Columba Centeno RN) History of D (Rh) Sensitization: No (11/07/2016 04:17:Columba Centeno RN) History Recurrent Loss/Stillborn: No (11/07/2016 04:17:Columba Centeno RN) History Depression/PP Depression: No (11/07/2016 04:17:Columba Centeno RN) History of Uterine Anomaly/NIGEL: No (11/07/2016 04:17:Columba Centeno RN) History of Infertility: No (11/07/2016 04:17:Columba Centeno RN) History of ART Treatment: No (11/07/2016 04:17:Columba Centeno RN) History of NIGEL: No (11/07/2016 04:17:Columba Centeno RN) Comments Obstetrical History: G1: 2009 G2: 2012 G3: Current (11/07/2016 04:17:Columba Centeno RN) MEDICAL HISTORY Med Hx Diabetes: No (11/07/2016 04:17:Columba Centeno RN) Med Hx Hypertension: No (11/07/2016 04:17:Columba Centeno RN) Med Hx Heart Disease: No (11/07/2016 04:17:Columba Centeno RN) Med Hx Autoimmune Disorder: No (11/07/2016 04:17:Columba Centeno RN) Med Hx Kidney Disease/UTI: No (11/07/2016 04:17:Columba Centeno RN) Med Hx Neurologic/Epilepsy: No (11/07/2016 04:17:Columba Centeno RN) Med Hx Psychiatric Disorders: No (11/07/2016 04:17:Columba Centeno RN) Med Hx Hepatitis/Liver Disease: No (11/07/2016 04:17:Columba Centeno RN) Med Hx Varicosities/Phlebitis: No (11/07/2016 04:17:Columba Centeno RN) Med Hx Thyroid Dysfunction: No (11/07/2016 04:17:Columba Centeno RN) Med Hx Trauma/Violence: No (11/07/2016 04:17:Columba Centeno RN) Med Hx Blood Transfusion: No (11/07/2016 04:17:Columba Centeno RN) Med Hx Pulmonary (Asthma,TB): No (11/07/2016 04:17:Columba Centeno RN) Med Hx Breast: No (11/07/2016 04:17:Columba Centeno RN) Med Hx DERRICK BOAT LEVERMAN Surgery: No (11/07/2016 04:17:Columba Centeno RN) Med Hx Hospitalization/Surgery: Yes (11/07/2016 04:17:Columba Centeno RN) Med Hx Anesthetic Complications: No (11/07/2016 04:17:Columba Centeno RN) Med Hx Abnormal Pap Smear: No (11/07/2016 04:17:Columba Centeno RN) Other Medical Diseases: No (11/07/2016 04:17:Columba Centeno RN) Med Hx Significant Family Hx: No (11/07/2016 04:17:Columba Centeno RN) Details of Med/Surg Hx: childbirth (11/07/2016 04:17:Columba Centeno RN) INFECTIOUS HISTORY Inf Hx Gonorrhea: No (11/07/2016 04:17:Columba Centeno RN) Inf Hx Chlamydia: No (11/07/2016 04:17:Columba Centeno RN) Inf Hx Syphilis: No (11/07/2016 04:17:Columba Centeno RN) Inf Hx HIV/AIDS: No (11/07/2016 04:17:Columba Centeno RN) Inf Hx Human Papilloma Virus: No (11/07/2016 04:17:Columba Centeno RN) Inf Hx Pt/Partner Genital Herpes: No (11/07/2016 04:17:Columba Centeno RN) Inf Hx Tuberculosis/Exposure: No (11/07/2016 04:17:Columba Centeno RN) Inf Hx Hepatitis B,C: No (11/07/2016 04:17:Columba Centeno RN) Inf Hx Rash or Viral Illness: No (11/07/2016 04:17:Columba Centeno RN) GENETIC HISTORY Gen Hx Age >=35 at MAIKEL: No (11/07/2016 04:17:Columba Centeno RN) Gen Hx Thalassemia: No (11/07/2016 04:17:Columba Centeno RN) Gen Hx Congenital Heart Defect: No (11/07/2016 04:17:Columba Centeno RN) Gen Hx Neural Tube Defect: No (11/07/2016 04:17:Columba Centeno RN) Gen Hx Down's Syndrome: No (11/07/2016 04:17:Columba Centeno RN) Gen Hx Tu-Sachs: No (11/07/2016 04:17:Columba Centeno RN) Gen Hx Gilmer: No (11/07/2016 04:17:Columba Centeno RN) Gen Hx Familial Dysautonomia: No (11/07/2016 04:17:Columba Centeno RN) Gen Hx Sickle Cell Disease/Trait: No (11/07/2016 04:17:Columba Centeno RN) Gen Hx Hemophilia/Blood Disorder: No (11/07/2016 04:17:Columba Centeno RN) Gen Hx Muscular Dystrophy: No (11/07/2016 04:17:Columba Centeno RN) Gen Hx Cystic Fibrosis: No (11/07/2016 04:17:Columba Centeno RN) Gen Hx [place] Chorea: No (11/07/2016 04:17:Columba Centeno RN) Gen Hx Mental Retardation/Autism: No (11/07/2016 04:17:Columba Centeno RN) Gen Hx Tested for Fragile X: No (11/07/2016 04:17:Columba Centeno RN) Gen Hx Other Inher/Chromosomal: No (11/07/2016 04:17:Columba Centeno RN) Gen Hx Maternal Metabolic DO: No (11/07/2016 04:17:Columba Centeno RN) Gen Hx Pt Father or FOB Defect: No (11/07/2016 04:17:Columba Centeno RN) Gen Hx Other Genetic History: No (11/07/2016 04:17:Columba Centeno RN) Gen Hx Drugs/Meds since LMP: No (11/07/2016 04:17:Columba Centeno RN)
--- NOTE | 2016-11-08 06:01 | L&D Current Admission ---
Current Admit Datetime Report Generated by CPN: 11/08/2016 06:00 ADMISSION INFORMATION Current Admit Date/Time: 11/07/2016 07:30 (11/07/2016 04:41:Randa Zhang RN) Reason for Admission: Onset of Labor (11/07/2016 04:41:Randa Zhang RN) Chief Complaint: Contractions (11/07/2016 04:41:Columba Centeno RN) Medications During : Vitamin (11/07/2016 04:41:Randa Zhang RN) EGA per Dates: 40.4 (11/07/2016 04:41:QS system process) Method of Arrival: Ambulatory (11/07/2016 04:41:Randa Zhang RN) Admitted From: Home (11/07/2016 04:41:Randa Zhang RN) Reason for Induction: Not Applicable (11/07/2016 04:41:Randa Zhang RN) Records Available: Yes (11/07/2016 04:41:Randa Zhang RN) General Admission Information: Reviewed; Updated; Confirmed (11/07/2016 04:41:Randa Zhang RN) BELONGINGS/ADVANCED DIRECTIVES Valuables/Personal Effects: None (11/07/2016 04:41:Randa Zhang RN) Disposition of Belongings: Sent Home (11/07/2016 04:41:Randa Zhang RN) Comments Regarding Disposition: see valuables consent (11/07/2016 04:41:Randa Zhang RN) Advance Direct for Healthcare: No, and Wants No Information (11/07/2016 04:41:Randa Zhang RN) Durable Power of Reproductive Endocrinologist: No (11/07/2016 04:41:Randa Zhang RN) Living Will: No (11/07/2016 04:41:Randa Zhang RN) Organ Donor: No (11/07/2016 04:41:Randa Zhang RN) Pt Rights Information Given: Yes (11/07/2016 04:41:Randa Zhang RN) LEARNING ASSESSMENT Knowledge Level: Understands L_D Process (11/07/2016 04:41:Randa Zhang RN) Barriers to Learning: None (11/07/2016 04:41:Randa Zhang RN) Learning Readiness: Motivated (11/07/2016 04:41:Randa Zhang RN) Learns Best By: 1 to 1 Instruction (11/07/2016 04:41:Randa Zhang RN) Learning Needs: Labor and Delivery Process (11/07/2016 04:41:Randa Zhang RN) DOMESTIC VIOLANCE SCREENING Dom Viol Threatened/Hurt: No (11/07/2016 04:41:Randa Zhang RN) Hx of Abuse/Neglect past 2yrs: No (11/07/2016 04:41:Randa Zhang RN) Feel Unsafe Going Home: No (11/07/2016 04:41:Randa Zhang RN) Addt'l Observ Indicating Abuse: No (11/07/2016 04:41:Randa Zhang RN) Reason Unable to Complete Screen: N/A, Screen Completed (11/07/2016 04:41:Randa Zhang RN) Considered Personal Harm/Suicide: No (11/07/2016 04:41:Randa Zhang RN) NUTRITIONAL/FUNCTIONAL SCREENING Problem with Appetite >5 Days: No (11/07/2016 04:41:Randa Zhang RN) Chew/Swallow Difficulties: No (11/07/2016 04:41:Randa Zhang RN) Inappropriate Wt Gain/Loss: No (11/07/2016 04:41:Randa Zhang RN) Presence Skin Breakdown/Ulcer: No (11/07/2016 04:41:Randa Zhang RN) Special Diet: No (11/07/2016 04:41:Randa Zhang RN) Pt Requests Typing Teacher Visit: No (11/07/2016 04:41:Randa Zhang RN) Hx of Any of the Following?: N/A (11/07/2016 04:41:Randa Zhang RN) New Diagnosis of: N/A (11/07/2016 04:41:Randa Zhang RN) Requires Assist w/Ambulation: No (11/07/2016 04:41:Randa Zhang RN) Uses Assist Device to Ambulate: No (11/07/2016 04:41:Randa Zhang RN) Pt Requires Help w/ADL's: No (11/07/2016 04:41:Randa Zhang RN)
--- NOTE | 2016-11-08 06:16 | L&D Care Plan ---
LD CARE PLANS Datetime Report Generated by CPN: 11/08/2016 06:15 Datetime: 11/07/2016 06:37 Pain State: Actual (Phyllis Maldonado RN) Related To: Labor and Delivery Process; Treatment and Procedures; Post (Phyllis Maldonado, RN) Goal(s): Patients Pain will be Assessed and Managed; Patient will Verbalize Adequate Relief of Pain or the Ability to [place] with Current Pain (Phyllis Maldonado RN) Interventions: Assess Pain Severity on Scale of 0 (None) to 5 (Severe); Assess Type, Location and Intensity of Pain Each Time Client Reports Discomfort and Notify Provider if Unusal Pain Develops; Encourage Proper Breathing and Relaxation Techniques; Offer Alternatives Such as Repositioning, Calm Environment, Massages, Diversional Activities, Ice Pack, Splinting, and Ambulation; Administer Analgesics as Ordered; Assist with Epidural Placement as Appropriate; Evaluate Therapeutic Effectiveness of Medication and Treatments (Phyllis Maldonado RN) Outcome: Patient will Report Absence or Relief of Pain Consistent with Established Pain Goal (Phyllis Maldonado RN) Status: Ongoing (Phyllis Maldonado RN) Outcome: Patient will have a Decrease in Signs and Symptoms of Discomfort (Phyllis Maldonado RN) Status: Ongoing (Phyllis Maldonado RN) Outcome: Pain will be Controlled During Procedures (Phyllis Maldonado RN) Status: Ongoing (Phyllis Maldonado RN) Anxiety State: Risk For (Phyllis Maldonado RN) Related To: Labor and Delivery Process; Significant Life Event (Phyllis Maldonado RN) Goal(s): Patient will have Decreased Anxiety and be able to Function at Acceptable Levels (Phyllis Maldonado RN) Interventions: Assess Verbal and Nonverbal Behavioral Indicators of Anxiety; Assist Patient to Identify and Verbalize Symptoms of Anxiety; Identify and Demonstrate Techniques to Control Anxiety; Assist Patient with Coping Mechanisms to Manage Anxiety; Provide Theraputic Touch for the Patient; Explain to Patient, Using a Calm Reassuring Approach and Nonmedical Terms, All Activities, Procedures, and Concerns; Instruct Patient and Family about Post Discharge Care, Limitations, Symptoms to Report and Resources Available (Phyllis Maldonado RN) Outcome: Patient will Identify, Verbalize and Demonstrate Techniques to Control Anxiety (Phyllis Maldonado RN) Status: Ongoing (Phyllis Maldonado RN) Outcome: Patient's Posture, Facial Expressions, Gestures and Activity Level will Reflect Decreased Anxiety (Phyllis Maldonado RN) Status: Ongoing (Phyllis Maldonado RN) Outcome: Patient will Verbalize a Sense of Control and/or Acceptance of the Situation (Phyllis Maldonado RN) Status: Ongoing (Phyllis Maldonado RN) Outcome: Patient will Identify and Utilize Support Person (Phyllis Maldonado RN) Status: Ongoing (Phyllis Maldonado RN) Knowledge Deficit State: Risk For (Phyllis Maldonado RN) Related To: Labor and Delivery Process; Treatment and Procedures; Impending Alterations in Family Dynamics (Phyllis Maldonado RN) Goal(s): Patient will Accurately Verbalize Understanding of Plan of Care and Treatment; Patient and Family will Accurately Verbalize Understanding of the Disease Process (Phyllis Maldonado RN) Interventions: Assess Motivation and Willingness of Patient/Family to Learn; Assess Preferred Learning Mode: One to One Instruction, Reading, Videos, Group Discussion or Demonstration; Assess Barriers to Learning: Pain, Emotional State, Language Barrier, Cognitive Impairment, Visual or Hearing Deficits; Assess Patient and Family Knowledge of Disease Process, Medications and Treatment; Discuss Therapy and/or Treatment Options, Describe Rationale Behind Management, Therapy and Treatment Recommendations; Instruct Patient and Family on Signs and Symptoms to Report; Instruct Patient and Family on Medication Effects and Side Effects; Provide Appropriate and Timely Education Using Multiple Techniques; Provide Patient and Family with Support Group Information and Resources; Give Clear and Thorough Explanations and Demonstrations (Phyllis Maldonado RN) Outcome: Patient and Family will Verbalize Understanding of Condition, Treatment and Signs and Symptoms to Report (Phyllis Maldonado RN) Status: Ongoing (Phyllis Maldonado RN) Outcome: Patient will Identify Perceived Learning Needs and Express Motivation to Learn (Phyllis Maldonado RN) Status: Ongoing (Phyllis Maldonado RN) Outcome: Patient will Verbalize Understanding of Desired Content, and/or Performs Desired Skill Prior to Discharge (Phyllis Maldonado RN) Status: Ongoing (Phyllis Maldonado, NICOLE) Infection State: Risk For (Phyllis Maldonado RN) Related To: Surgical Procedures; Prolonged Labor or Induction; Invasive Procedures (Phyllis Maldonado RN) Goal(s): The Patient will be Free of Infection, Vital Signs Stable and Lab Work within Normal Parameters (Phyllis Maldonado RN) Interventions: Instruct and Reinforce Proper Handwashing, Hygiene, and Care Techniques to Patient and Family; Monitor Vital Signs; Monitor Patient for the Following Signs of Infection: Fever, Abdominal Tenderness, Unusual Discharge; Monitor Aminiotic Fluid, Urine and Lochia for Color and Odor; Observe Wounds, Incisions and Invasive Line Sites for Redness, Drainage and Edema; Assess IV Sites per Hospital Policy; Monitor Lab and Test Results and Notify Provider of Abnormal Findings; Assess Nutritional Status and Promote Good Nutrition (Phyllis Maldonado, NICOLE) Outcome: Patient will Remain Free of Infection (Phyllis Maldonado, NICOLE) Status: Ongoing (Phyllis Maldonado RN) Outcome: Infection will be Recognized Early to Allow for Prompt Treatment (Phyllis Maldonado RN) Status: Ongoing (Phyllis Maldonado RN) Outcome: Patient will have Vital Signs Within Expected Range (Phyllis Maldonado, RN) Status: Ongoing (Phyllis Maldonado, RN) Fluid Volume State: Risk For (Phyllis Maldonado RN) Related To: Prolonged Labor or Induction (Phyllis Maldonado RN) Goal(s): Patient will Achieve and Maintain a Balanced Fluid Volume Status; Hemodynamically Stable (Phyllis Maldonado RN) Interventions: Monitor Vital Signs; Auscultate Breath Sounds; Monitor Patient for Skin Turgor, Mucous Membranes, Dry Skin, Weakness, Headaches and Confusion; Provide Oral Fluids as Ordered; Initiate and Maintain Intravenous Fluids as Ordered; Monitor Intake and Output as Indicated Per Patient Status; Accurately Measure Blood Loss; Monitor Lab and Test Results as Obtained and Notify Provider of Abnormal Findings; Monitor Patient's Weight (Phyllis Maldonado RN) Outcome: Patient will have Clear Lung Sounds (Phyllis Maldonado, RN) Status: Ongoing (Phyllis Maldonado RN) Outcome: Patient will have Vital Signs within Expected Range (Phyllis Maldonado, RN) Status: Ongoing (Phyllis Maldonado RN) Outcome: Urine Output will be within Expected Range (Phyllis Maldonado, RN) Status: Ongoing (Phyllis Maldonado, RN) Outcome: Patient will have Minimal Generalized or Upper Extremity Edema (Phyllis Maldonado, RN) Status: Ongoing (Phyllis Maldonado, RN) Injury State: Risk For (Phyllis Maldonado RN) Related To: Labor and Delivery Process (Phyllis Maldonado RN) Goal(s): Patient will Remain Free from Injury (Phyllis Maldonado RN) Interventions: Monitoring as per Hospital Protocol; Assess Neurological Status; Perform Risk Assessment of Patients with Induction and ; Perform Fall Risk Assessment and Prevention per Hospital Protocol; Perform DVT Risk Assessment and Prophylaxis per Hospital Protocol; Ensure that Oxygen, Suction, and Resuscitation Medications and Equipment are Readily Available; Confirm Patient ID Prior to Procedure(s) and Medication Administration per Hospital Policy (Phyllis Maldonado RN) Outcome: Successful Fall Risk Prevention (Phyllis Maldonado RN) Status: Ongoing (Phyllis Maldonado RN) Outcome: Patient will Deliver Infant without Adverse [place] (Phyllis Maldonado RN) Status: Ongoing (Phyllis Maldonado RN) Outcome: Patient's Neurological Status will Remain Stable (Phyllis Maldonado RN) Status: Ongoing (Phyllis Maldonado RN) Impaired Skin Integrity State: Risk For (Phyllis Maldonado RN) Related To: Vaginal Delivery; Surgical Procedures; Invasive Procedures (Phyllis Maldonado RN) Goal(s): Patient will Maintain Optimal Skin Integrity, Free of Breakdown, Injury or Infection (Phyllis Maldonado RN) Interventions: Complete Screening for Pressure Ulcer Risk and Initiate Protocol per Hospital Policy; Monitor Site of Skin Impairment for Color Changes, Redness, Swelling, Warmth, Pain or Other Signs of Infection; Encourage and Assist with Position Changes; Monitor Patient's Mobility Status; Provide Adequate Nutrition and Fluids; Teach Patient Appropriate Hygienic Care; Teach Patient/Family Skin Care Management (Phyllis Maldonado RN) Outcome: Patient will not have Evidence of Injury Such as Skin Breakdown, Scrapes, Cuts, or Bruising (Phyllis Maldonado RN) Status: Ongoing (Phyllis Maldonado RN) Outcome: Patient will Report Any Altered Sensation or Pain at Site of Skin Impairment (Phyllis Maldonado RN) Status: Ongoing (Phyllis Maldonado RN) Outcome: Patients Incisions and Wounds will be without Signs or Symptoms of Infection (Phyllis Maldonado RN) Status: Ongoing (Phyllis Maldonado RN) Outcome: Patient will Demonstrate Understanding of Plan to Heal Skin and Prevent Reinjury and Verbalize Risk Factors (Phyllis Maldonado RN) Status: Ongoing (Phyllis Maldonado RN) Parenting Impaired State: Not Applicable (Phyllis Maldonado RN) Nutrition State: Risk For (Phyllis Maldonado RN) Related To: ; (Phyllis Maldonado RN) Goal(s): Patient will have an Intake of Nutrients Sufficient to Meet Metabolic Needs (Phyllis Maldonado RN) Interventions: Nutritional Screening and Assessment per Hospital Policy; Consult Architectural Intern for Further Assessment and Recommendations Regarding Food Preferences and Nutritional Support; Allow Patient to Plan and Order Diet when Possible; Monitor Laboratory Values That Indicate Nutritional Well-being; Consult Organ Pipe Finisher for Nutritional Support Regarding Requirements; Document Actual Weight Initially and Weekly (Do Not Estimate); Encourage Patient Participation in Maintaining a Food Log as Indicated; Educate Patient on the Importance of Maintaining an Adequate Caloric Intake (Phyllis Maldonado RN) Outcome: Patient will Receive Adequate Calories and Fluid Volume to Meet Metabolic Needs (Phyllis Maldonado RN) Status: Ongoing (Phyllis Maldonado RN) Outcome: Patient will Select Foods or Meals that Support Adequate Nutrition (Phyllis Maldonado RN) Status: Ongoing (Phyllis Ring, RN) Grieving State: Not Applicable (Phyllis Ring, RN) Additional Care Plan State: Not Applicable (Phyllis Ring, RN)
[2016-11-08 07:59] LABS: HEMOGLOBIN 8.9 g/dL (12.0-15.5); HGB HCT DIFFERENCE -1.3; MEAN CORPUSCULAR HEMOGLOBIN 25.7 pg (27.0-33.4); MEAN CORPUSCULAR HGB CONC 31.8 g/dL (32.0-36.0); MEAN CORPUSCULAR VOLUME 81 fl (80-97); RED BLOOD COUNT 3.46 10^6/uL (3.72-5.28); RED CELL DISTRIBUTION WIDTH 15.4 % (11.5-14.0); WHITE BLOOD COUNT 13.4 10^3/uL (4.0-10.5)
--- NOTE | 2016-11-08 09:35 | PDOC PROGRESS REPORT ---
Subjective-OB Subjective: Post Delivery Day: 26 year old. Denies any needs at this time Doing well, no c/o, eating bkf, voiding, ambulating Physical Exam (OB) Vital Signs: Temp Pulse Resp BP Pulse Ox 98.1 F 68 16 118/64 100 11/08/16 07:54 11/08/16 07:54 11/08/16 07:54 11/08/16 07:54 11/08/16 07:54 Intake & Output 11/07/16 11/08/16 11/09/16 06:59 06:59 06:59 Weight 72.8 kg - Lochia Lochia Amount: Scant < 10 ml Lochia Color: Rubra/Red - Abdomen Description: Soft Hernia Present: No Fundal Description: Firm, Midline Fundal Height: u/u - u/2 Objective-Diagnostic Laboratory: 11/08/16 07:26 11/08/16 07:26 WBC 13.4 H RBC 3.46 L Hgb 8.9 L Hct 28.0 L MCV 81 MCH 25.7 L MCHC 31.8 L RDW 15.4 H Plt Count 172 Assessment and Plan(PN) - Assessment and Plan (1) No care in current Qualifiers: Trimester: unspecified trimester Qualified Code(s): O09.30 - Supervision of with insufficient care, unspecified trimester Is this a current diagnosis for this admission?: Yes (2) Anemia Qualifiers: Anemia type: iron deficiency Is this a current diagnosis for this admission?: Yes (3) Delivery normal Is this a current diagnosis for this admission?: Yes - Time Spent with Patient Time with patient: Less than 15 minutes Medications reviewed and adjusted accordingly: Yes - Disposition Anticipated Discharge: Home Within: within 48 hours
[2016-11-08] MEDS: DOCUSATE SODIUM 100 MG CAPSULE PO SCH ×2 (10:25→18:13)
[2016-11-08] MEDS: PRENATAL VITAMIN W-O CA NO5/FE FUMARATE/FA CAPSULE PO SCH (10:25)
[2016-11-08] MEDS: SENNOSIDES/DOCUSATE 8.6-50 MG 1 EACH TABLET PO SCH (10:25)
[2016-11-08] MEDS: FERROUS SULFATE 325 MG TABLET PO SCH ×2 (10:26→18:13)
[2016-11-09] MEDS: IBUPROFEN 800 MG TABLET PO SCH ×2 (05:12→15:14)
[2016-11-09 08:41] VITALS: BP 112/77
[2016-11-09] MEDS: DOCUSATE SODIUM 100 MG CAPSULE PO SCH (12:09)
[2016-11-09] MEDS: FERROUS SULFATE 325 MG TABLET PO SCH (12:09)
[2016-11-09] MEDS: SENNOSIDES/DOCUSATE 8.6-50 MG 1 EACH TABLET PO SCH (12:09)
[2016-11-09] MEDS: PRENATAL VITAMIN W-O CA NO5/FE FUMARATE/FA CAPSULE PO SCH (12:09)
[2016-11-09 13:37] LABS: HEPATITIS C VIRUS AB <0.1 s/co ratio (0.0-0.9)
--- NOTE | 2016-11-13 15:25 | PDOC DISCHARGE SUMMARY ---
Final Diagnosis Discharge Date: 11/09/16 - Final Diagnosis (1) Anemia Is this a current diagnosis for this admission?: Yes (2) Delivery normal Is this a current diagnosis for this admission?: Yes Discharge Data - Discharge Medication Home Medications: Pnv W-O Ca No5/Fe Fumarate/FA [-U Multiple Vitamin Capsule] 1 cap PO DAILY 03/14/13 Ferrous Sulfate [Feosol 325 mg Tablet] 325 mg PO BID #90 tablet 11/09/16 Ibuprofen [Motrin 800 mg Tablet] 800 mg PO Q8 #90 tablet 11/09/16 Reason(s) for Admission: Onset of Labor Procedures: None Intrapartum Procedure(s): Spontaneous Vaginal Delivery Complication(s): Laceration-Perineal Laceration-Degree: 1st - Data Baby 1 Male at 1 minute: 9 at 5 minutes: 9 Weight: 3.685 kg Home with Mother: Yes Complications: No - Diagnosis Test Laboratory: Temp Pulse Resp BP Pulse Ox 98.2 F 78 16 112/77 100 11/09/16 09:59 11/09/16 09:59 11/09/16 09:59 11/09/16 08:07 11/09/16 09:59 11/07/16 11/07/16 11/08/16 04:29 07:12 07:26 RBC 3.63 L 3.46 L Hgb 9.5 L 8.9 L Hct 29.1 L 28.0 L Urine Opiates Screen NEGATIVE - Discharge information/Instructions Discharge Activity: Activity As Tolerated, No Lifting Over 10 Pounds, Pelvic Rest, No tub bath Discharge Diet: Regular Disposition: HOME, SELF-CARE Follow up with: [facility] in: 4, Weeks
== END 2016-11-09 16:03 | disposition home or self-care (01) | DRG 775 ==
LOC: LC 04:13 → LR 06:40 → 2S 14:00
PROVIDERS: ADMIT Specialist; ATTEND Specialist
PROC: 10E0XZZ Delivery of Products of Conception, External Approach (ICD-10-PCS; principal; 2016-11-07)
DX: O40.3XX0 Polyhydramnios, third trimester, not applicable or unspecified (principal); O69.81X0 Labor and delivery complicated by cord around neck, without compression, not applicable or unspecified; O77.0 Labor and delivery complicated by meconium in amniotic fluid; O99.013 Anemia complicating pregnancy, third trimester; D50.9 Iron deficiency anemia, unspecified; O70.0 First degree perineal laceration during delivery; O99.334 Smoking (tobacco) complicating childbirth; F17.210 Nicotine dependence, cigarettes, uncomplicated; Z3A.40 40 weeks gestation of pregnancy; Z37.0 Single live birth; O09.33 Supervision of pregnancy with insufficient antenatal care, third trimester
CPT/HCPCS: 36415; 80307; 81005; 82962; 85025; 85027; 86592; 86701; 86762; 86803; 86804; 86850; 86900; 86901; 87070; 87340; 87491; 87591; 88307; J2370; J2540; J2590; J3010; J3490

== ENCOUNTER 2018-02-07 17:24 | Emergency (ER) | payer MEDICAID ==
[2018-02-07 17:33] VITALS: BP 111/64
== END 2018-02-07 19:50 | disposition left against medical advice (07) ==
LOC: ER 17:24
DX: Z53.21 Procedure and treatment not carried out due to patient leaving prior to being seen by health care provider (principal)

== ENCOUNTER 2018-02-23 12:01 | Emergency (ER) | payer MEDICAID ==
[2018-02-23 12:08] VITALS: BP 132/83
[2018-02-23] MEDS ORDERED: PREDNISONE 20 MG TABLET PO ONE (12:32)
--- NOTE | 2018-02-23 12:32 | ER Document Report ---
ED Skin Rash/Insect Bite/Abscs - General Chief Complaint: Skin Problem Stated Complaint: SKIN ISSUE Time Seen by Provider: 02/23/18 12:12 Mode of Arrival: Ambulatory Information source: Patient Notes: 28-year-old female presented to ED for a skin condition to bilateral hands. She states this started with blisters on her right hand and then started peeling about 2 weeks ago. She states she also had a area on her upper arm. She states that it then spread to the left hand. Hands are very rough and dry scaly and flaky. TRAVEL OUTSIDE OF THE [place] IN LAST 30 DAYS: No - HPI Patient complains to provider of: Skin rash/lesion Onset: Other - 2 weeks Onset/Duration: Gradual Quality of pain: Achy, Other - Itchy Severity: Moderate Pain Level: 3 Skin Character: Rash, Scales Quality of rash: Itchy, Painful Identify cause: No Exacerbated by: Denies Relieved by: Denies Similar symptoms previously: No Recently seen / treated by doctor: No - Related Data Allergies/Adverse Reactions: No Known Allergies Allergy (Verified 02/23/18 12:02) Past Medical History - General Information source: Patient - Social History Smoking Status: Current Every Day Smoker Cigarette use (# per day): Yes - 6-7 cigarettes a day Chew tobacco use (# tins/day): No Smoking Education Provided: Yes - 4 minutes Frequency of alcohol use: None Drug Abuse: None Lives with: Family Family History: Reviewed & Not Pertinent Patient has suicidal ideation: No Patient has homicidal ideation: No - Past Medical History Cardiac Medical History: Reports: None Pulmonary Medical History: Reports: None EENT Medical History: Reports: None Neurological Medical History: Reports: None Endocrine Medical History: Reports: None Renal/ Medical History: Reports: None Malignancy Medical History: Reports: None GI Medical History: Reports: None Musculoskeltal Medical History: Reports None Skin Medical History: Reports Hx Eczema - She has now been diagnosed with eczema Psychiatric Medical History: Reports: None Traumatic Medical History: Reports: None Infectious Medical History: Reports: None Surgical Hx: Negative Past Surgical History: Reports: None - Immunizations Immunizations up to date: Yes Hx Diphtheria, Pertussis, Tetanus Vaccination: Yes Review of Systems - Review of Systems Constitutional: No symptoms reported EENT: No symptoms reported Cardiovascular: No symptoms reported Respiratory: No symptoms reported Gastrointestinal: No symptoms reported Genitourinary: No symptoms reported Female Genitourinary: No symptoms reported Musculoskeletal: No symptoms reported Skin: No symptoms reported Hematologic/Lymphatic: No symptoms reported Neurological/Psychological: No symptoms reported Physical Exam - Vital signs Vitals: Temp Pulse Resp BP Pulse Ox 99.3 F 98 16 132/83 H 100 02/23/18 12:06 02/23/18 12:06 02/23/18 12:02/23/18 12:02/23/18 12:06 Interpretation: Normal - General General appearance: Appears well, Alert - HEENT Head: Normocephalic, Atraumatic Eyes: Normal Pupils: PERRL - Respiratory Respiratory status: No respiratory distress Chest status: Nontender Breath sounds: Normal Chest palpation: Normal - Cardiovascular Rhythm: Regular Heart sounds: Normal auscultation Murmur: No - Abdominal Inspection: Normal Distension: No distension Bowel sounds: Normal Tenderness: Nontender Organomegaly: No organomegaly - Back Back: Normal, Nontender - Extremities General upper extremity: Normal inspection, Nontender, Normal color, Normal ROM , Normal temperature General lower extremity: Normal inspection, Nontender, Normal color, Normal ROM , Normal temperature, Normal weight bearing. No: Zan's sign - Neurological Neuro grossly intact: Yes Cognition: Normal Orientation: AAOx4 Kenzie Coma Scale Eye Opening: Spontaneous Imbler Coma Scale Verbal: Oriented Kenzie Coma Scale Motor: Obeys Commands Imbler Coma Scale Total: 15 Speech: Normal Motor strength normal: LUE, RUE, LLE, RLE Sensory: Normal - Psychological Associated symptoms: Normal affect, Normal mood - Skin Skin Temperature: Warm Skin Moisture: Dry Skin Color: Normal Location of irregularity: Other - Lateral hands with a small patch on the right forearm. Vesicles with erythematous base to the acute areas plaque he scaly excoriated lesions that are thickened with lichenification on the right hand more than the left hand Character of irregularity: Patchy Irregularity with: Scaling Course - Vital Signs Vital signs: Temp Pulse Resp BP Pulse Ox 99.3 F 98 16 132/83 H 100 02/23/18 12:06 02/23/18 12:06 02/23/18 12:06 02/23/18 12:06 02/23/18 12:06 Discharge - Discharge Clinical Impression: Acute eczema of hand Condition: Stable Disposition: HOME, SELF-CARE Instructions: Family Physicians / Practices Additional Instructions: Atopic Dematitis (Eczema) You have atopic dermatitis, commonly called eczema. This is a chronic allergic skin condition. It often occurs in families with asthma and hay fever. The skin develops patches of redness, itching and scaling. Eczema often affects the back of the neck, back of the legs, and front of the arms. In children it affects the back of the knees, front of the elbows, and the cheeks. Itching is the main symptom. Eczema can be triggered by dryness, heat, sweating, and detergents or soap. Scratching makes the rash worse. Food or skin allergy can cause eczema. Emotional stress may also be a factor. Symptoms may get better or worse spontaneously. Generally, the treatment consists of: (1) avoid hot-water baths, (2) avoid using soap on your skin, (3) apply a cortisone cream as needed, and (4) use antihistamines for itching. For severe episodes, oral cortisone medication may be required. Call the doctor if you get worse despite treatment, or if signs of infection occur -- such as spreading redness, red streaks, swollen glands, swelling, or fever. STEROID MEDICATION: You have been given a medicine of the cortisone/steroid class. This medication is used to control inflammation or allergy. It is usually only given for a short period of time, until the acute process subsides. There are usually no side effects from short-term use of cortisone-like medications. Some persons feel an increased sense of well-being and are not sleepy at bedtime. Long-term use of cortisone medications is best avoided, unless required for a severe condition. If your condition does not remit, or relapses after the course of corticosteroid medication, you should consult your physician. Medicines that can help with the dryness and the symptoms are Eucerin cream until you can follow-up with your primary doctor and get other recommendations. I would also recommend you follow-up with a jogger operator. FOLLOW-UP CARE: If you have been referred to a physician for follow-up care, call the physician s office for an appointment as you were instructed or within the next two days. If you experience worsening or a significant change in your symptoms, notify the physician immediately or return to the Emergency Department at any time for re-evaluation. Prescriptions: Prednisone [Deltasone 20 mg Tablet] 3 tab PO DAILY 5 Days tablet Forms: Elevated Blood Pressure, Smoking Cessation Education Referrals: [facility] [Provider Group] - Follow up as needed
== END 2018-02-23 12:48 | disposition home or self-care (01) ==
LOC: ER 12:01
DX: L30.9 Dermatitis, unspecified (principal); F17.210 Nicotine dependence, cigarettes, uncomplicated
CPT/HCPCS: 99282; J7512

== ENCOUNTER 2019-05-31 10:51 | Emergency (ER) | payer MEDICAID ==
--- NOTE | 2019-05-31 11:21 | ER Document Report ---
ED Medical Screen (RME) - General Chief Complaint: Abdominal Pain Stated Complaint: STOMACH PAIN,VOMITING Time Seen by Provider: 05/31/19 11:14 Mode of Arrival: Ambulatory Information source: Patient Notes: 29-year-old female presents emergency department with complaints of constant achy abdominal pain that radiates from her lower abdomen to her back and up into her chest for the past 3 days. She reports she will have a flare of pain that are sharp twisty. Patient also complains she is been vomiting have diarrhea for the past 3 days. Denies chronic illnesses such as IBS Crohn's diverticulitis. Reports her mother is also here with the same abdominal pain but she has not been vomiting or have the diarrhea. No other family members are ill. Patient denies pain with void vaginal discharge but mentions she is currently on her menses. Reports she is never had this before. I have greeted and performed a rapid initial assessment of this patient. A comprehensive ED assessment and evaluation of the patient, analysis of test results and completion of the medical decision making process will be conducted by additional ED providers. Dictation of this chart was performed using voice recognition software; therefore, there may be some unintended grammatical errors. TRAVEL OUTSIDE OF THE [place] IN LAST 30 DAYS: No - Related Data Allergies/Adverse Reactions: No Known Allergies Allergy (Verified 05/31/19 10:52) Past Medical History Renal/ Medical History: Denies: Hx Peritoneal Dialysis Skin Medical History: Reports Hx Eczema - She has now been diagnosed with eczema - Immunizations Immunizations up to date: Yes Hx Diphtheria, Pertussis, Tetanus Vaccination: Yes Physical Exam - Vital signs Vitals: Temp Pulse Resp BP Pulse Ox 98.8 F 90 18 111/91 H 100 05/31/19 11:06 05/31/19 11:06 05/31/19 11:06 05/31/19 11:06 05/31/19 11:06 Course - Vital Signs Vital signs: Temp Pulse Resp BP Pulse Ox 98.8 F 90 18 111/91 H 100 05/31/19 11:06 05/31/19 11:06 05/31/19 11:06 05/31/19 11:06 05/31/19 11:06
[2019-05-31 11:58] LABS: APPEARANCE,URINE SLIGHTLY-CLOUDY; BILIRUBIN,URINE NEGATIVE (NEGATIVE); COLOR,URINE YELLOW; GLUCOSE, URINE NEGATIVE (NEGATIVE); HEMATOCRIT 31.1 % (36.0-47.0); HEMOGLOBIN 10.1 g/dL (12.0-15.5); KETONES,URINE NEGATIVE (NEGATIVE); LEUKOCYTE ESTERASE,URINE NEGATIVE (NEGATIVE); MEAN CORPUSCULAR HEMOGLOBIN 26.2 pg (27.0-33.4); MEAN CORPUSCULAR HGB CONC 32.5 g/dL (32.0-36.0); MEAN CORPUSCULAR VOLUME 81 fl (80-97); NITRITE,URINE NEGATIVE (NEGATIVE); PLATELET COUNT 264 10^3/uL (150-450); PROTEIN,URINE NEGATIVE (NEGATIVE); RED BLOOD COUNT 3.85 10^6/uL (3.72-5.28); RED CELL DISTRIBUTION WIDTH 16.8 % (11.5-14.0); URINE SPECIFIC GRAVITY 1.024; UROBILINOGEN,URINE NEGATIVE mg/dL (<2.0); WHITE BLOOD COUNT 4.7 10^3/uL (4.0-10.5)
[2019-05-31 12:15] LABS: ALBUMIN 3.9 g/dL (3.5-5.0); ALKALINE PHOSPHATASE 35 U/L (38-126); ANION GAP 8 (5-19); ASPARTATE AMINO TRANSFERASE 22 U/L (14-36); BILIRUBIN,DIRECT 0.1 mg/dL (0.0-0.4); BILIRUBIN,TOTAL 0.2 mg/dL (0.2-1.3); BLOOD UREA NITROGEN 7 mg/dL (7-20); CALCIUM 8.9 mg/dL (8.4-10.2); CARBON DIOXIDE 21 mmol/L (22-30); CHLORIDE 109 mmol/L (98-107); GLUCOSE 94 mg/dL (75-110); TOTAL PROTEIN 6.6 g/dL (6.3-8.2)
[2019-05-31 12:24] LABS: ABSOLUTE LYMPHOCYTES# (MANUAL) 1.5 10^3/uL (0.5-4.7); ABSOLUTE MONOCYTES # (MANUAL) 0.5 10^3/uL (0.1-1.4); BASOPHILS % (MANUAL) 0 % (0-2); EOSINOPHILS % (MANUAL) 5 % (0-6); LYMPHOCYTES % (MANUAL) 29 % (13-45); MONOCYTES % (MANUAL) 10 % (3-13); SEGMENTED NEUTROPHILS % (MAN) 53 % (42-78); TOTAL CELLS COUNTED 100
[2019-05-31 12:26] LABS: ANISOCYTOSIS 1+; HYPOCHROMASIA 2+; OVALOCYTES SLIGHT; PLATELET COMMENT ADEQUATE; POIKILOCYTOSIS SLIGHT; TEAR DROP CELLS SLIGHT
[2019-05-31] MEDS ORDERED: NORMAL SALINE 1000 ML 1,000 ML IV ONE (14:12)
[2019-05-31] MEDS ORDERED: ONDANSETRON HCL INJ/PF 4 MG/2 ML SDV IV ONE (14:13)
[2019-05-31] MEDS ORDERED: FENTANYL CITRATE INJ/PF 100 MCG/2 ML AMPUL IV ONE (16:01)
--- NOTE | 2019-05-31 17:00 | RADIOLOGY REPORT (SQ) ---
EXAM DESCRIPTION: CT ABD/PELVIS WITH IV ONLY COMPLETED DATE/TIME: 05/31/2019 4:43 pm REASON FOR STUDY: RLQ pain COMPARISON: None. TECHNIQUE: CT scan of the abdomen and pelvis performed using helical scanning technique with dynamic intravenous contrast injection. No oral contrast. Images reviewed with lung, soft tissue, and bone windows. Reconstructed coronal and sagittal MPR images reviewed. Delayed images for evaluation of the urinary system also acquired. All images stored on PACS. All CT scanners at this facility use dose modulation, iterative reconstruction, and/or weight based d osing when appropriate to reduce radiation dose to as low as reasonably achievable (ALARA). [facility]: Dose Right [facility]: CareDose [facility]: Dose Right [facility]: Teradose 4D [facility]: Rev[employer] Systems CONTRAST TYPE AND DOSE: contrast/concentration: Isovue 350.00 mg/ml; Total Contrast Delivered: 64.0 ml; Total Saline Delivered: 65.0 ml RENAL FUNCTION: GFR > 60. RADIATION DOSE: CT Rad equipment meets quality standard of care and radiation dose reduction techniq ues were employed. CTDIvol: NaN - NaN mGy. DLP: 0 mGy-cm.. LIMITATIONS: None. FINDINGS: LOWER CHEST: No basilar consolidation, pleural effusion or nodule. No cardiomegaly or per icardial effusion. LIVER: The morphology of the liver is non cirrhotic. The portal veins are patent. There is no hepat ic mass. SPLEEN: No splenomegaly. PANCREAS: No abnormality. GALLBLADDER: No abnormality that is apparent on CT. ADRENAL GLANDS: No abnormality. RIGHT KIDNEY AND URETER: No solid masses, hydronephrosis, nephrolithiasis, hydroureter or ureterolith iasis. LEFT KIDNEY AND URETER: No solid masses, hydronephrosis, nephrolithiasis, hydroureter or ureterolithi asis. AORTA AND VESSELS: No aneurysm or dissection. RETROPERITONEUM: No retroperitoneal adenopathy. BOWEL AND PERITONEAL CAVITY: Circumferential mural thickening involving the cecum, ascending colon, t ransverse colon, descending colon and sigmoid colon. There is no pericolonic or perienteric inflamma tion. There is no mesenteric adenopathy or free intraperitoneal fluid. APPENDIX: Normal. PELVIS: No abnormality. ABDOMINAL WALL: No masses or hernias. BONES: No acute findings. OTHER: No other finding. IMPRESSION: Circumferential mural thickening involving the cecum, ascending colon, transverse colon, descending colon and sigmoid colon. Correlate with clinical findings to exclude an infectious or in flammatory colitis. TECHNICAL DOCUMENTATION: JOB ID: [id number] Quality ID # [id number]: Final reports with documentation of one or more dose reduction techniques (e.g., Au tomated exposure control, adjustment of the mA and/or kV according to patient size, use of iterative reconstruction technique) 2010 [employer]- All Rights Reserved Reading location - IP/workstation name: [email or web address]
--- NOTE | 2019-05-31 18:33 | ER Document Report ---
ED General - General Chief Complaint: Abdominal Pain Stated Complaint: STOMACH PAIN,VOMITING Time Seen by Provider: 05/31/19 11:14 Mode of Arrival: Ambulatory Notes: Patient is a 29-year-old female presents to the emergency department for generalized lower abdominal pain. Patient voices she has had multiple episodes of vomiting and diarrhea over the last 3 days. Patient denies any blood in her vomit or diarrhea but also states she is currently on her menstrual cycle. Patient also complaining of generalized sharp right lower abdominal pain and some left lower abdominal cramping. Patient's denying any fevers, chest pain, respiratory distress, dysuria, vaginal discharge. Patient's denying any medical problems, denies any daily medications, denies any allergies TRAVEL OUTSIDE OF THE [place] IN LAST 30 DAYS: No - Related Data Allergies/Adverse Reactions: No Known Allergies Allergy (Verified 05/31/19 10:52) Past Medical History - General Information source: Patient - Social History Smoking Status: Current Every Day Smoker Chew tobacco use (# tins/day): No Frequency of alcohol use: Rare Drug Abuse: None Family History: Reviewed & Not Pertinent Patient has suicidal ideation: No Patient has homicidal ideation: No Renal/ Medical History: Denies: Hx Peritoneal Dialysis Skin Medical History: Reports Hx Eczema - She has now been diagnosed with eczema - Immunizations Immunizations up to date: Yes Hx Diphtheria, Pertussis, Tetanus Vaccination: Yes Review of Systems - Review of Systems Constitutional: denies: Fever EENT: No symptoms reported Cardiovascular: No symptoms reported Respiratory: No symptoms reported Gastrointestinal: See HPI Genitourinary: See HPI Female Genitourinary: See HPI Musculoskeletal: No symptoms reported Skin: No symptoms reported Hematologic/Lymphatic: No symptoms reported Neurological/Psychological: No symptoms reported Physical Exam - Vital signs Vitals: Temp Pulse Resp BP Pulse Ox 98.8 F 90 18 111/91 H 100 05/31/19 11:06 05/31/19 11:06 05/31/19 11:06 05/31/19 11:06 05/31/19 11:06 - Notes Notes: GENERAL: Alert, interacts well. No acute distress. HEAD: Normocephalic, atraumatic. EYES: Pupils equal, round, and reactive to light. Extraocular movements intact. ENT: Oral mucosa moist, tongue midline. NECK: Full range of motion. Supple. Trachea midline. LUNGS: Clear to auscultation bilaterally, no wheezes, rales, or rhonchi. No respiratory distress. HEART: Regular rate and rhythm. No murmur ABDOMEN: Soft, right lower quadrant abdominal pain noted, left lower abdominal pain noted. No Lopez sign noted. Non-distended. Bowel sounds present in all 4 quadrants. EXTREMITIES: Moves all 4 extremities spontaneously. No edema, normal radial and dorsalis pedis pulses bilaterally. No cyanosis. BACK: no cervical, thoracic, lumbar midline tenderness. No saddle anesthesia, normal distal neurovascular exam. No CVA tenderness noted bilaterally NEUROLOGICAL: Alert and oriented x3. Normal speech. cranial nerves II through XII grossly intact PSYCH: Normal affect, normal mood. SKIN: Warm, dry, normal turgor. No rashes or lesions noted. Course - Re-evaluation Re-evalutation: Laboratory 05/31/19 05/31/19 05/31/19 11:35 11:35 11:35 WBC 4.7 RBC 3.85 Hgb 10.1 L Hct 31.1 L MCV 81 MCH 26.2 L MCHC 32.5 RDW 16.8 H Plt Count 264 Lymph % (Auto) Not Reportable [place] % (Auto) Not Reportable Eos % (Auto) Not Reportable Baso % (Auto) Not Reportable Absolute Neuts (auto) Not Reportable Absolute Lymphs (auto) Not Reportable Absolute Monos (auto) Not Reportable Absolute Eos (auto) Not Reportable Absolute Basos (auto) Not Reportable Total Counted 100 Seg Neutrophils % Not Reportable Seg Neuts % (Manual) 53 Lymphocytes % (Manual) 29 Atypical Lymphs % 3 Monocytes % (Manual) 10 Eosinophils % (Manual) 5 Basophils % (Manual) 0 Abs Neuts (Manual) 2.5 Abs Lymphs (Manual) 1.5 Abs Monocytes (Manual) 0.5 Absolute Eos (Manual) 0.2 Abs Basophils (Manual) 0.0 Platelet Comment ADEQUATE Hypochromasia 2+ Poikilocytosis SLIGHT Anisocytosis 1+ Tear Drop Cells SLIGHT Ovalocytes SLIGHT Sodium 138.1 Potassium 4.0 Chloride 109 H Carbon Dioxide 21 L Anion Gap 8 BUN 7 Creatinine 0.80 Est GFR ( Amer) > 60 Est GFR (MDRD) Non-Af > 60 Glucose 94 Calcium 8.9 Total Bilirubin 0.2 Direct Bilirubin 0.1 Neonat Total Bilirubin Not Reportable Neonat Direct Bilirubin Not Reportable Neonat Indirect Bili Not Reportable AST 22 ALT 13 Alkaline Phosphatase 35 L Total Protein 6.6 Albumin 3.9 Lipase 76.1 Urine Color YELLOW Urine Appearance SLIGHTLY-CLOUDY Urine pH 5.0 Ur Specific Crocker 1.024 Urine Protein NEGATIVE Urine Glucose (UA) NEGATIVE Urine Ketones NEGATIVE Urine Blood MODERATE H Urine Nitrite NEGATIVE Urine Bilirubin NEGATIVE Urine Urobilinogen NEGATIVE Ur Leukocyte Esterase NEGATIVE Urine WBC (Auto) 2 Urine RBC (Auto) 1 Urine Bacteria (Auto) 1+ Squamous Epi Cells Auto 16 Urine Mucus (Auto) FEW Urine Ascorbic Acid NEGATIVE Urine HCG, Qual NEGATIVE Abdomen/Pelvis CT 05/31/19 16:01 IMPRESSION: Circumferential mural thickening involving the cecum, ascending colon, transverse colon, descending colon and sigmoid colon. Correlate with clinical findings to exclude an infectious or inflammatory colitis. Upon reassessment of patient's abdominal pain and to review her CT scan she is eating a chicken sandwich from [employer]. States she overall feels a lot better. Based on patient's CT imaging I will treat with Augmentin. Urine shows no signs of infection. Discussed use of antibiotics and antinausea medication. At this time will discharge with return precautions and follow-up recommendations. Verbal discharge instructions given a the bedside and opportun ity for questions given. Medication warnings reviewed. Patient is in agreement with this plan and has verbalized understanding of return precautions and the need for primary care follow-up in the next 24-72 hours. This medical record was dictated with voice recognizing software. There may be grammatical, syntax errors that are unintended. - Vital Signs Vital signs: Temp Pulse Resp BP Pulse Ox 98.7 F 67 18 107/68 100 05/31/19 17:46 05/31/19 17:46 05/31/19 11:06 05/31/19 17:46 05/31/19 17:46 - Laboratory Result Diagrams: 05/31/19 11:35 05/31/19 11:35 Laboratory results interpreted by me: 05/31/19 05/31/19 05/31/19 11:35 11:35 11:35 Hgb 10.1 L Hct 31.1 L MCH 26.2 L RDW 16.8 H Chloride 109 H Carbon Dioxide 21 L Alkaline Phosphatase 35 L Urine Blood MODERATE H Discharge - Discharge Clinical Impression: Colitis, Nausea vomiting and diarrhea Condition: Stable Disposition: HOME, SELF-CARE Instructions: Abdominal Pain ([facility]), Antinausea Medication ([facility]), Diarrhea, Nonspecific ([facility]) Additional Instructions: As we discussed you have been seen and treated in the emergency department for generalized abdominal pain, nausea, vomiting, diarrhea. Your imaging shows signs of inflammation in your bowel wall. This is typical with a illness associated with diarrhea. I am treating it with a medication called Augmentin so there is no chance of infection. Please make sure you are taking antibiotics and nausea medication as prescribed. Please follow-up with your primary care provider in the next 24 to 48 hours. Return to the emergency room for any further concerns. Prescriptions: Amox Tr/Potassium Clavulanate [Augmentin 875-125 Tablet] 1 tab PO BID 10 Days tablet Ondansetron [Zofran Odt 4 mg Tablet] 1 tab PO Q6 PRN #10 tab.rapdis PRN Reason: For Nausea/Vomiting Forms: Return to Work
[2019-05-31 18:58] VITALS: BP 99/66
== END 2019-05-31 18:59 | disposition home or self-care (01) ==
LOC: ER 10:51
DX: K52.9 Noninfective gastroenteritis and colitis, unspecified (principal); R11.2 Nausea with vomiting, unspecified; R10.84 Generalized abdominal pain; R10.30 Lower abdominal pain, unspecified; R10.31 Right lower quadrant pain; R10.32 Left lower quadrant pain; R10.9 Unspecified abdominal pain; F17.200 Nicotine dependence, unspecified, uncomplicated
CPT/HCPCS: 36415; 83690; 85025; 81025; 80053; 81001; 74177; J3010; J2405; J7030